=== PATIENT | female | born 1955 | race Two or more races ===

== ENCOUNTER 2016-11-16 08:11 | Day surgery (SDC) | payer MEDICAID ==
[~2016-11-16 08:11] MED LIST: KETOROLAC TROMETHAMINE 0.45% 4 DROP/0.4 ML DROPERETTE OD PRN
[2016-11-16] MEDS ORDERED: EPINEPHRINE INJ/PF 1 MG/1 ML AMPULE ONE (08:23)
[2016-11-16] MEDS ORDERED: LIDOCAINE 1% INJ-PF (10 MG/ML) 30 ML SDV ONE (08:24)
[2016-11-16] MEDS ORDERED: CHONDR SU A NA/HYALUR INTRAOC KIT (SURGICARE) ONE (08:24)
[2016-11-16] MEDS: CYCLOPENTOLATE 0.2%/PHENYLEPHRINE 1% OPH SOLN 2 ML OD PRN ×3 (08:42→09:18)
[2016-11-16] MEDS: TETRACAINE HCL 0.5% OPH SOLN 2 ML OD PRN ×3 (08:42→09:42)
[2016-11-16] MEDS: TROPICAMIDE 1% OPH SOLN 3 ML OD PRN ×3 (08:43→09:18)
[2016-11-16] MEDS: BESIFLOXACIN HCL 0.6% OPH SUSP 5 ML BOTTLE OD PRN ×4 (08:44→10:07)
[2016-11-16] MEDS ORDERED: MIDAZOLAM 2 MG/2 ML INJ ONE (09:17)
--- NOTE | 2016-11-16 13:33 | [facility] OPERATIVE REPORT E ---
[facility] Operative Report NAME: MORENO SMITH AGE: 60Y DATE OF SURGERY: 11/16/2016 ROOM: PREOPERATIVE DIAGNOSIS: CATARACT, RIGHT EYE. POSTOPERATIVE DIAGNOSIS: CATARACT, RIGHT EYE. OPERATION: Cataract extraction with intraocular lens implant of the right eye. SURGEON: MELANI ARNOLD M.D. ANESTHESIA: Topical. PROCEDURE: After obtaining appropriate consent, the patient's right eye was prepped and draped in sterile fashion as well as the surgeon in a sterile manner and cataract surgery was started. First a paracentesis blade was used to make a small side-port incision. Viscoelastic was used to inflate the anterior chamber. Next a 2.4-mm incision was made with the paracentesis blade. A continuous capsulorrhexis incision was made using a cystotome and Utrata forceps. Following this hydrodissection was carried out to make the lens fully loose and mobile and it was rotated 90 degrees. Following this, a fiqlgd-ybq-oxycmuj technique was used to phacoemulsify the lens with a CDE of 7.55. The remaining cortex was removed with irrigation/aspiration. Provisc was instilled into the capsular bag to inflate the bag. A SN60WF, 21.0 diopter lens was placed. The remaining viscoelastic material was removed with irrigation/aspiration. Following this, a 10-0 nylon suture was used to close the incision and it was found to be watertight. Vigamox was instilled in the eye and a protective shield was placed over the eye. The patient returned to the postoperative recovery in stable condition. DICTATING PHYSICIAN: MELANI ARNOLD M.D. [id number] PHY#: [id number] ID: [id number] JOB#: [id number] ACCT: [id number] cc:MELANI ARNOLD M.D. >
--- NOTE | 2016-11-16 13:34 | [facility] DISCHARGE SUMMARY E ---
[facility] Discharge Summary NAME: MORENO SMITH AGE: 60Y ADMITTED: 11/16/2016 DISCHARGED: 11/16/2016 DIAGNOSIS: Cataract, right eye. SUMMARY: This is a 60-year-old female who underwent cataract extraction of the right eye. She underwent surgery because she was having trouble seeing words on the TV. DISCHARGE INSTRUCTIONS: She should be on a regular diet. No bending at her waist or heavy lifting. She should use her Besivance, Ilevro and Durezol at 3 p.m. and 8 p.m. and sleep with a rigid shield. I will see for 1-day postoperative tomorrow. DICTATING PHYSICIAN: MELANI ARNOLD M.D. [id number] PHY#: [id number] ID: [id number] JOB#: [id number] ACCT: [id number] cc:MELANI ARNOLD M.D. >
== END 2016-11-16 10:52 | disposition home or self-care (01) ==
LOC: SC 08:11
PROVIDERS: ATTEND Internal Medicine
PROC: 08RJ3JZ Replacement of Right Lens with Synthetic Substitute, Percutaneous Approach (ICD-10-PCS; principal; 2016-11-16 09:30)
DX: H25.811 Combined forms of age-related cataract, right eye (principal); Z96.1 Presence of intraocular lens; J45.909 Unspecified asthma, uncomplicated; I10 Essential (primary) hypertension; E11.9 Type 2 diabetes mellitus without complications; Z79.1 Long term (current) use of non-steroidal anti-inflammatories (NSAID)
CPT/HCPCS: 66984; 82962; V2632; J2250; J3490 ×4; J0171; 142

== ENCOUNTER 2017-10-18 11:11 | Inpatient (IN) | payer MEDICAID ==
[2017-10-18] MEDS ORDERED: KETOROLAC TROMETHAMINE INJ/PF 30 MG/1 ML SDV IV ONE (11:32)
[2017-10-18] MEDS ORDERED: ONDANSETRON HCL INJ/PF 4 MG/2 ML SDV IV ONE (11:32)
[2017-10-18] MEDS ORDERED: MORPHINE SULFATE 10 MG/ML INJ IV ONE ×2 (11:32→17:05)
[2017-10-18] MEDS ORDERED: NORMAL SALINE 1000 ML 1,000 ML IV ONE (11:33)
--- NOTE | 2017-10-18 11:34 | ER Document Report ---
ED Medical Screen (RME) - General Chief Complaint: Abdominal Pain Stated Complaint: STOMACH PAIN Time Seen by Provider: 10/18/17 11:28 Notes: The patient is a 61-year-old female, past medical history 3 ventral hernia repairs (last one 12 months ago), bipolar, presents with 1 week of worsening right lower quadrant abdominal pain and nausea. She saw her primary care physician at [facility] this morning and was sent to the ER because of concern of appendicitis. PE: RLQ tenderness. Normal bowel sounds. I have greeted and performed a rapid initial assessment of this patient. A comprehensive ED assessment and evaluation of the patient, analysis of test results and completion of the medical decision making process will be conducted by additional ED providers. TRAVEL OUTSIDE OF THE [place] IN LAST 30 DAYS: No - Related Data Allergies/Adverse Reactions: codeine [Codeine] Allergy (Severe, Verified 11/09/16 13:08) Swelling of Throat Home Medications: Current Home Medications Albuterol Sulfate [Proair Respiclick] 2 puff IN Q4 PRN 10/18/17 [History] Beclomethasone Dipropionate [Qvar] 2 puff IN BID 10/18/17 [History] Cyclobenzaprine HCl 1 tab PO TID 10/18/17 [History] Gabapentin 400 mg PO TID 10/18/17 [History] Omeprazole 20 mg PO DAILY 10/18/17 [History] Zoster Vaccine Live/Pf [Zostavax Vial] 1 dose SUBCUT ASDIR PRN 10/18/17 [History ] Past Medical History - Past Medical History Cardiac Medical History: Reports: Hx Hypertension - meds x 20 years Denies: Hx Coronary Artery Disease, Hx Heart Attack Pulmonary Medical History: Reports: Hx Asthma - denies ED visits Denies: Hx Bronchitis, Hx COPD, Hx Pneumonia Neurological Medical History: Denies: Hx Cerebrovascular Accident, Hx Seizures GI Medical History: Denies: Hx Hepatitis, Hx Hiatal Hernia, Hx Ulcer Musculoskeltal Medical History: Reports Hx Arthritis - "all over" Infectious Medical History: Denies: Hx Hepatitis Past Surgical History: Denies: Hx Mastectomy, Hx Open Heart Surgery, Hx Pacemaker - Immunizations Hx Diphtheria, Pertussis, Tetanus Vaccination: No Physical Exam - Vital signs Vitals: Temp Pulse Resp BP Pulse Ox 98.6 F 75 14 161/81 H 98 10/18/17 11:17 10/18/17 11:17 10/18/17 11:17 10/18/17 11:17 10/18/17 11:17 Course - Vital Signs Vital signs: Temp Pulse Resp BP Pulse Ox 98.6 F 75 14 161/81 H 98 10/18/17 11:17 10/18/17 11:17 10/18/17 11:17 10/18/17 11:17 10/18/17 11:17
[2017-10-18 12:16] LABS: ABSOLUTE BASOPHILS # (AUTO) 0.1 10^3/uL (0.0-0.2); ABSOLUTE EOSINOPHILS # (AUTO) 0.1 10^3/uL (0.0-0.6); ABSOLUTE LYMPHOCYTES (AUTO) 3.1 10^3/uL (0.5-4.7); ABSOLUTE MONOCYTES (AUTO) 0.9 10^3/uL (0.1-1.4); ABSOLUTE NEUT (AUTO) 8.3 10^3/uL (1.7-8.2); BASOPHILS % (AUTO) 1.1 % (0-2); HEMATOCRIT 33.8 % (36.0-47.0); HEMOGLOBIN 11.4 g/dL (12.0-15.5); HGB HCT DIFFERENCE 0.4; LYMPHOCYTES % (AUTO) 24.4 % (13-45); MEAN CORPUSCULAR HEMOGLOBIN 26.4 pg (27.0-33.4); MEAN CORPUSCULAR HGB CONC 33.9 g/dL (32.0-36.0); MEAN CORPUSCULAR VOLUME 78 fl (80-97); RED BLOOD COUNT 4.33 10^6/uL (3.72-5.28); RED CELL DISTRIBUTION WIDTH 14.1 % (11.5-14.0); SEGMENTED NEUTROPHILS % (AUTO) 66.5 % (42-78); WHITE BLOOD COUNT 12.5 10^3/uL (4.0-10.5)
--- NOTE | 2017-10-18 12:18 | ER Document Report ---
ED GI/ - General Chief Complaint: Abdominal Pain Stated Complaint: STOMACH PAIN Time Seen by Provider: 10/18/17 11:28 TRAVEL OUTSIDE OF THE [place] IN LAST 30 DAYS: No - HPI Notes: 10/18/17 12:14 This 61 years old female with a history of chronic pain syndrome taking tramadol , possible gastroparesis, presents today with one-week history of brownie dark watery stool twice a day, and gradually increasing diffuse abdominal pain, today the pain was more increased on the right lower quadrant. Denies any fever chills denies any nausea or vomiting. Denies any dysuria frequency urgency. Intensity of pain today is moderate to severe. Exacerbated by change in position. Denies any dysuria frequency urgency. - Related Data Allergies/Adverse Reactions: codeine [Codeine] Allergy (Severe, Verified 11/09/16 13:08) Swelling of Throat Home Medications: Current Home Medications Albuterol Sulfate [Proair Respiclick] 2 puff IN Q4 PRN 10/18/17 [History] Beclomethasone Dipropionate [Qvar] 2 puff IN BID 10/18/17 [History] Cyclobenzaprine HCl 1 tab PO TID 10/18/17 [History] Gabapentin 400 mg PO TID 10/18/17 [History] Omeprazole 20 mg PO DAILY 10/18/17 [History] Zoster Vaccine Live/Pf [Zostavax Vial] 1 dose SUBCUT ASDIR PRN 10/18/17 [History ] Past Medical History - General Information source: Patient - Social History Smoking Status: Never Smoker Frequency of alcohol use: None Drug Abuse: None Family History: Arthritis, Hypertension Patient has suicidal ideation: No Patient has homicidal ideation: No - Past Medical History Cardiac Medical History: Reports: Hx Hypertension - meds x 20 years Denies: Hx Coronary Artery Disease, Hx Heart Attack Pulmonary Medical History: Reports: Hx Asthma - denies ED visits Denies: Hx Bronchitis, Hx COPD, Hx Pneumonia Neurological Medical History: Denies: Hx Cerebrovascular Accident, Hx Seizures Renal/ Medical History: Denies: Hx Peritoneal Dialysis GI Medical History: Denies: Hx Hepatitis, Hx Hiatal Hernia, Hx Ulcer Musculoskeltal Medical History: Reports Hx Arthritis - "all over" Infectious Medical History: Denies: Hx Hepatitis Past Surgical History: Denies: Hx Mastectomy, Hx Open Heart Surgery, Hx Pacemaker - Immunizations Hx Diphtheria, Pertussis, Tetanus Vaccination: No Review of Systems - Review of Systems Constitutional: No symptoms reported. denies: See HPI, Chills, Diaphoresis, Fever, Malaise, Weakness, Other, Weight gain, Weight loss, Recent illness EENT: No symptoms reported. denies: See HPI, Eye pain, Eye discharge, Blurred vision, Tearing, Double vision, Ear pain, Ear discharge, Nose pain, Nose congestion, Nose discharge, Sinus pressure, Sinus discharge, Throat pain, Difficulty swallowing, Throat swelling, Mouth pain, Mouth swelling, Dental problem, Vertigo, Other Cardiovascular: No symptoms reported. denies: See HPI, Chest pain, Palpitations , Heart racing, Orthopnea, Dyspnea, Syncope, Dizziness, Lightheaded, Edema, Other, Paroxysmal Nocturnal Dysp Respiratory: No symptoms reported. denies: See HPI, Cough, Hurts to breathe, Hemoptysis, Short of breath, Sputum, Stridor, Wheezing, Other Gastrointestinal: See HPI Genitourinary: See HPI Female Genitourinary: No symptoms reported. denies: See HPI, Last menstrual period, , Post menopausal, Heavy/abnormal periods, Irregular period, Vaginal bleeding, Vaginal discharge, Vaginal odor, Painful intercourse, Other Skin: No symptoms reported. denies: See HPI, Change in color, Change in hair/ nails, Dryness, Lesions, Lumps, Rash, Other Physical Exam - Vital signs Vitals: Temp Pulse Resp BP Pulse Ox 98.6 F 75 14 161/81 H 98 10/18/17 11:17 10/18/17 11:17 10/18/17 11:17 10/18/17 11:17 10/18/17 11:17 - Notes Notes: General exam: Alert oriented 3, appears well, not in any acute distress, body habitus----obese female seems to be in moderate discomfort diffuse abdominal tenderness more so on the right lower quadrant with guarding.--. HEENT: Normocephalic atraumatic pupils were equal reactive to light extraocular muscles were within normal range. Neck is supple no JVD no lymphadenopathy. Oral mucosa-not erythematous, no lesions noted no tonsillar enlargement. Chest no lesions, nontraumatic, nontender. No deformity Lungs: Bilaterally clear breath sounds no rales or wheezing, no adventitial sounds,no dullness on percussion. Cardiovascular system: Normal S1-S2 no murmurs, no gallop. Regular rhythm. No peripheral edema over the lower extremities. Gastrointestinal: Normal appearance, positive bowel sounds in all 4 quadrants, no Hepatosplenomegaly, no obvious masses, no obvious abdominal bruit. No horseshoe dullness. Inguinal region: No masses or obvious inguinal hernia noted Genitourinary: Rectal exam: Nervous system: Alert oriented 3, no cranial nerve weakness, no focal neurological deficit noted. Sensation is intact over the lower extremities for pain and touch. Reflexes are 2+ over both patella. Upper extremities: No trauma as noted, normal range of motion for both shoulders ,elbows and wrist. Lower extremity: No traumas or deformities noted, normal range of motion for flexion extension abduction abduction of both hip joints, Normal flexion and extension of knee joint. Normal range of motion for plantarflexion dorsiflexion and eversion inversion for both ankles. Skin: No erythema, no edema, no obvious lesions noted Course - Re-evaluation Re-evalutation: 10/18/17 17:17 Surgery was consulted regarding her right lower quadrant seroma versus hematoma. - Vital Signs Vital signs: Temp Pulse Resp BP Pulse Ox 98.6 F 75 14 161/81 H 98 10/18/17 11:17 10/18/17 11:17 10/18/17 11:17 10/18/17 11:17 10/18/17 11:17 - Laboratory Result Diagrams: 10/18/17 11:50 10/18/17 13:52 Laboratory results interpreted by me: 10/18/17 10/18/17 11:50 13:52 WBC 12.5 H Hgb 11.4 L Hct 33.8 L MCV 78 L MCH 26.4 L RDW 14.1 H Absolute Neutrophils 8.3 H Sodium 128.6 L Chloride 96 L Carbon Dioxide 21 L Creatinine 0.50 L Glucose 74 L - Diagnostic Test Radiology results interpreted by me: 10/18/17 16:10 Diagnostic report text EXAM DESCRIPTION: CT ABD/PELVIS WITH IV ONLY COMPLETED DATE/TIME: 10/18/2017 3:10 pm REASON FOR STUDY: RLQ pain COMPARISON: 10/24/2016. TECHNIQUE: CT scan of the abdomen and pelvis performed using helical scanning technique with dynamic intravenous contrast injection. No oral contrast. Images reviewed with lung, soft tissue, and bone windows. Reconstructed coronal and sagittal MPR images reviewed. Delayed images for evaluation of the urinary system also acquired. All images stored on PACS. All CT scanners at this facility use dose modulation, iterative reconstruction, and/or weight based dosing when appropriate to reduce radiation dose to as low as reasonably achievable (ALARA). [facility]: Dose Right [facility]: CareDose [facility]: Dose Right [facility]: Teradose 4D [facility]: TrepUp CONTRAST TYPE AND DOSE: contrast/concentration: Isovue 370.00 mg/ml; Total Contrast Delivered: 86.0 ml; Total Saline Delivered: 69.0 ml RENAL FUNCTION: BUN 9 creatinine 0.5. RADIATION DOSE: . LIMITATIONS: None. FINDINGS: LOWER CHEST: No significant findings. No nodules or infiltrates. LIVER: Normal size. No masses. No dilated ducts. SPLEEN: Normal size. No focal lesions. PANCREAS: No masses. No significant calcifications. No adjacent inflammation or peripancreatic fluid collections. Pancreatic duct not dilated. GALLBLADDER: No identified stones by CT criteria. No inflammatory changes to suggest cholecystitis. ADRENAL GLANDS: No significant masses or asymmetry. RIGHT KIDNEY AND URETER: No solid masses. No significant calcifications. No hydronephrosis or hydroureter. LEFT KIDNEY AND URETER: No solid masses. No significant calcifications. No hydronephrosis or hydroureter. AORTA AND VESSELS: No aneurysm. No dissection. Renal arteries, SMA, celiac without stenosis. RETROPERITONEUM: No retroperitoneal adenopathy, hemorrhage or masses. BOWEL AND PERITONEAL CAVITY: No masses or inflammatory changes. No free fluid or peritoneal masses. APPENDIX: Normal. PELVIS: No mass. No free fluid. Normal bladder. ABDOMINAL WALL: Interval abdominal wall hernia repair. Fluid collection along the anterior abdominal wall at the operative site measuring 2 cm in thickness, 6 cm and with , and 7.5 cm and length. BONES: No significant or acute findings. OTHER: No other significant finding. IMPRESSION: 1. INTERVAL SURGICAL REPAIR OF THE ABDOMINAL WALL HERNIA. THERE IS FLUID COLLECTION IN THE OPERATIVE SITE, PRESUMABLY RESIDUAL POSTOPERATIVE SEROMA OR RESOLVING HEMATOMA. 2. NO OTHER SIGNIFICANT OR ACUTE FINDING IN THE ABDOMEN OR PELVIS ON CT SCAN WITH IV CONTRAST. TECHNICAL DOCUMENTATION: JOB ID: [id number] Quality ID # [id number]: Final reports with documentation of one or more dose reduction techniques (e.g., Automated exposure control, adjustment of the mA and/or kV according to patient size, use of iterative reconstruction technique) 2010 [employer]- All Rights Reserved Dictated by: SURJIT NAVARRO MD [id number] Discharge - Discharge Clinical Impression: Colitis, Hyponatremia, Dehydration Abdominal pain Qualifiers: Abdominal location: generalized Qualified Code(s): R10.84 - Generalized abdominal pain Disposition: ADMITTED OBSERVATION Admitting Provider: Hospitalist Unit Admitted: Medical Floor Referrals: CHAPIS HSIEH MD [Primary Care Provider] - Follow up as needed
[2017-10-18 13:17] LABS: APPEARANCE,URINE CLEAR; BILIRUBIN,URINE NEGATIVE (NEGATIVE); GLUCOSE, URINE NEGATIVE (NEGATIVE); KETONES,URINE NEGATIVE (NEGATIVE); LEUKOCYTE ESTERASE,URINE NEGATIVE (NEGATIVE); NITRITE,URINE NEGATIVE (NEGATIVE); PROTEIN,URINE NEGATIVE (NEGATIVE); URINE SPECIFIC GRAVITY 1.008; UROBILINOGEN,URINE NEGATIVE mg/dL (<2.0)
[2017-10-18 14:38] LABS: ALANINE AMINOTRANSFERASE 25 U/L (9-52); ALBUMIN 3.9 g/dL (3.5-5.0); ALKALINE PHOSPHATASE 94 U/L (38-126); ANION GAP 12 (5-19); ASPARTATE AMINO TRANSFERASE 22 U/L (14-36); BILIRUBIN,DIRECT 0.3 mg/dL (0.0-0.4); BILIRUBIN,TOTAL 0.3 mg/dL (0.2-1.3); BLOOD UREA NITROGEN 9 mg/dL (7-20); CALCIUM 8.5 mg/dL (8.4-10.2); CARBON DIOXIDE 21 mmol/L (22-30); CHLORIDE 96 mmol/L (98-107); GLUCOSE 74 mg/dL (75-110); LIPASE 240.7 U/L (23-300); POTASSIUM 4.8 mmol/L (3.6-5.0); SODIUM 128.6 mmol/L (137-145); TOTAL PROTEIN 6.3 g/dL (6.3-8.2)
--- NOTE | 2017-10-18 15:25 | RADIOLOGY REPORT (SQ) ---
EXAM DESCRIPTION: CT ABD/PELVIS WITH IV ONLY COMPLETED DATE/TIME: 10/18/2017 3:10 pm REASON FOR STUDY: RLQ pain COMPARISON: 10/24/2016. TECHNIQUE: CT scan of the abdomen and pelvis performed using helical scanning technique with dynamic intravenous contrast injection. No oral contrast. Images reviewed with lung, soft tissue, and bone windows. Reconstructed coronal and sagittal MPR images reviewed. Delayed images for evaluation of the urinary system also acquired. All images stored on PACS. All CT scanners at this facility use dose modulation, iterative reconstruction, and/or weight based d osing when appropriate to reduce radiation dose to as low as reasonably achievable (ALARA). [facility]: Dose Right [facility]: CareDose [facility]: Dose Right [facility]: Teradose 4D [facility]: [employer] CONTRAST TYPE AND DOSE: contrast/concentration: Isovue 370.00 mg/ml; Total Contrast Delivered: 86.0 ml; Total Saline Delivered: 69.0 ml RENAL FUNCTION: BUN 9 creatinine 0.5. RADIATION DOSE: . LIMITATIONS: None. FINDINGS: LOWER CHEST: No significant findings. No nodules or infiltrates. LIVER: Normal size. No masses. No dilated ducts. SPLEEN: Normal size. No focal lesions. PANCREAS: No masses. No significant calcifications. No adjacent inflammation or peripancreatic fluid collections. Pancreatic duct not dilated. GALLBLADDER: No identified stones by CT criteria. No inflammatory changes to suggest cholecystitis. ADRENAL GLANDS: No significant masses or asymmetry. RIGHT KIDNEY AND URETER: No solid masses. No significant calcifications. No hydronephrosis or hyd roureter. LEFT KIDNEY AND URETER: No solid masses. No significant calcifications. No hydronephrosis or hydr oureter. AORTA AND VESSELS: No aneurysm. No dissection. Renal arteries, SMA, celiac without stenosis. RETROPERITONEUM: No retroperitoneal adenopathy, hemorrhage or masses. BOWEL AND PERITONEAL CAVITY: No masses or inflammatory changes. No free fluid or peritoneal masses. APPENDIX: Normal. PELVIS: No mass. No free fluid. Normal bladder. ABDOMINAL WALL: Interval abdominal wall hernia repair. Fluid collection along the anterior abdominal wall at the operative site measuring 2 cm in thickness, 6 cm and with, and 7.5 cm and length. BONES: No significant or acute findings. OTHER: No other significant finding. IMPRESSION: 1. INTERVAL SURGICAL REPAIR OF THE ABDOMINAL WALL HERNIA. THERE IS FLUID COLLECTION IN THE OPERATIVE SITE, PRESUMABLY RESIDUAL POSTOPERATIVE SEROMA OR RESOLVING HEMATOMA. 2. NO OTHER SIGNIFICANT OR ACUTE FINDING IN THE ABDOMEN OR PELVIS ON CT SCAN WITH IV CONTRAST. TECHNICAL DOCUMENTATION: JOB ID: [id number] Quality ID # [id number]: Final reports with documentation of one or more dose reduction techniques (e.g., Au tomated exposure control, adjustment of the mA and/or kV according to patient size, use of iterative reconstruction technique) 2010 [employer]- All Rights Reserved
--- NOTE | 2017-10-18 17:47 | PDOC CONSULTATION ---
Consultation Consult Date: 10/18/17 Consult reason:: Abdominal pain History of Present Illness Admission Date/PCP: CHAPIS HSIEH MD Patient complains of: Abdominal pain History of Present Illness: MORENO SMITH is a 61 year old female presenting with one-week history of diffuse lower abdominal pain along with diarrhea. She has had intermittent episodes of nausea and vomiting as well. She denies any fever. She denies any prior history of this abdominal pain. This problem has been present for about a week and with this persistence patient came into the emergency department. She has had a ventral hernia repair with mesh for recurrent ventral hernia at the beginning of this year. Apparently she recovered well from this surgery without problems. Past Medical History Cardiac Medical History: Reports: Hypertension - meds x 20 years Denies: Coronary Artery Disease, Myocardial Infarction Pulmonary Medical History: Reports: Asthma - denies ED visits Denies: Bronchitis, Chronic Obstructive Pulmonary Disease (COPD), Pneumonia Neurological Medical History: Denies: Seizures GI Medical History: Denies: Hepatitis, Hiatal Hernia Musculoskeltal Medical History: Reports: Arthritis - "all over" Hematology: Reports: Anemia - Hx of, treated with PO iron Denies: Sickle Cell Disease Past Surgical History Past Surgical History: Denies: Amputation, Mastectomy, Pacemaker Social History Smoking Status: Never Smoker Family History Family History: Arthritis, Hypertension Parental Family History Reviewed: Yes Children Family History Reviewed: Yes Sibling(s) Family History Reviewed.: Yes Medication/Allergy Home Medications: Meloxicam [Mobic] 7.5 mg PO DAILY 03/06/12 Metformin HCl [Glucophage XR 500 mg Tablet] 500 mg PO BID 10/23/16 Lisinopril 20 mg PO DAILY 10/26/16 Albuterol Sulfate [Proair Respiclick] 2 puff IN Q4 PRN 10/18/17 Beclomethasone Dipropionate [Qvar] 2 puff IN BID 10/18/17 Cyclobenzaprine HCl 1 tab PO TID 10/18/17 Gabapentin 400 mg PO TID 10/18/17 Omeprazole 20 mg PO DAILY 10/18/17 Zoster Vaccine Live/Pf [Zostavax Vial] 1 dose SUBCUT ASDIR PRN 10/18/17 Allergies/Adverse Reactions: codeine [Codeine] Allergy (Severe, Verified 11/09/16 13:08) Swelling of Throat Physical Exam Vital Signs: Temp Pulse Resp BP Pulse Ox 98.6 F 75 14 161/81 H 98 10/18/17 11:17 10/18/17 11:17 10/18/17 11:17 10/18/17 11:17 10/18/17 11:17 Intake & Output 10/17/17 10/18/17 10/19/17 06:59 06:59 06:59 Weight 80.3 kg General appearance: PRESENT: no acute distress, cooperative Eye exam: PRESENT: conjunctiva pink Neck exam: PRESENT: other - Supple with no masses Respiratory exam: PRESENT: clear to auscultation carly Cardiovascular exam: PRESENT: RRR GI/Abdominal exam: PRESENT: other - Soft, patient is obese and difficult to tell whether she is distended. There is no erythema and there is no induration she has a well-healed abdominal scar. I do not feel any hernia defects. Patient has diffuse lower abdominal tenderness without peritoneal signs. Extremities exam: PRESENT: other - No swelling Skin exam: PRESENT: warm Results Laboratory Results: 10/18/17 11:50 10/18/17 13:52 10/18/17 10/18/17 10/18/17 11:50 11:50 12:48 WBC 12.5 H RBC 4.33 Hgb 11.4 L Hct 33.8 L MCV 78 L MCH 26.4 L MCHC 33.9 RDW 14.1 H Plt Count 425 Seg Neutrophils % 66.5 Lymphocytes % 24.4 Monocytes % 7.0 Eosinophils % 1.0 Basophils % 1.1 Absolute Neutrophils 8.3 H Absolute Lymphocytes 3.1 Absolute Monocytes 0.9 Absolute Eosinophils 0.1 Absolute Basophils 0.1 Sodium Cancelled Potassium Cancelled Chloride Cancelled Carbon Dioxide Cancelled Anion Gap Cancelled BUN Cancelled Creatinine Cancelled Est GFR ( Amer) Cancelled Est GFR (Non-Af Amer) Cancelled Glucose Cancelled Calcium Cancelled Total Bilirubin Cancelled AST Cancelled ALT Cancelled Alkaline Phosphatase Cancelled Total Protein Cancelled Albumin Cancelled Lipase Cancelled Urine Color STRAW Urine Appearance CLEAR Urine pH 7.0 Ur Specific Tracy 1.008 Urine Protein NEGATIVE Urine Glucose (UA) NEGATIVE Urine Ketones NEGATIVE Urine Blood NEGATIVE Urine Nitrite NEGATIVE Ur Leukocyte Esterase NEGATIVE Urine WBC (Auto) 1 Urine RBC (Auto) 1 10/18/17 13:52 WBC RBC Hgb Hct MCV MCH MCHC RDW Plt Count Seg Neutrophils % Lymphocytes % Monocytes % Eosinophils % Basophils % Absolute Neutrophils Absolute Lymphocytes Absolute Monocytes Absolute Eosinophils Absolute Basophils Sodium 128.6 L Potassium 4.8 Chloride 96 L Carbon Dioxide 21 L Anion Gap 12 BUN 9 Creatinine 0.50 L Est GFR ( Amer) > 60 Est GFR (Non-Af Amer) > 60 Glucose 74 L Calcium 8.5 Total Bilirubin 0.3 AST 22 ALT 25 Alkaline Phosphatase 94 Total Protein 6.3 Albumin 3.9 Lipase 240.7 Urine Color Urine Appearance Urine pH Ur Specific Tracy Urine Protein Urine Glucose (UA) Urine Ketones Urine Blood Urine Nitrite Ur Leukocyte Esterase Urine WBC (Auto) Urine RBC (Auto) Impressions: Abdomen/Pelvis CT 10/18/17 11:32 IMPRESSION: 1. INTERVAL SURGICAL REPAIR OF THE ABDOMINAL WALL HERNIA. THERE IS FLUID COLLECTION IN THE OPERATIVE SITE, PRESUMABLY RESIDUAL POSTOPERATIVE SEROMA OR RESOLVING HEMATOMA. 2. NO OTHER SIGNIFICANT OR ACUTE FINDING IN THE ABDOMEN OR PELVIS ON CT SCAN WITH IV CONTRAST. Assessment & Plan - Diagnosis (1) Colitis Is this a current diagnosis for this admission?: Yes Plan: Patient with diarrhea and lower abdominal pain for a week all consistent with colitis. CT scan demonstrates a seroma versus hematoma anterior to the mesh repair. I do not see inflammatory changes in this region. She demonstrates no erythema no induration over this area therefore I do not think this finding is clinically significant. The appendix appeared normal on CT. There is no free air. There is no free fluid. There is no inflammatory changes seen on CT. Recommend admission to medical service for treatment of her colitis with IV fluids, antibiotics, and stool studies.
[2017-10-18] MEDS ORDERED: ZOLPIDEM TARTRATE 5 MG TABLET PO PRN (18:09)
[2017-10-18] MEDS ORDERED: ACETAMINOPHEN 325 MG TABLET PO PRN (18:09)
[2017-10-18] MEDS ORDERED: ONDANSETRON HCL INJ/PF 4 MG/2 ML SDV IV PRN (18:09)
[2017-10-18] MEDS ORDERED: INSULIN LISPRO 100 UNIT/ML 3 ML VIAL SUBCUT PRN (18:17)
[2017-10-18] MEDS ORDERED: GLUCAGON,HUMAN RECOMB 1 MG INJ IM PRN (18:17)
[2017-10-18] MEDS ORDERED: DEXTROSE 50%-WATER 25 GM/50 ML DISP.SYRIN IV PRN ×2 (18:17)
[2017-10-18] MEDS ORDERED: DEXTROSE 40% GEL 15 GM TUBE PO PRN ×2 (18:17)
--- NOTE | 2017-10-18 18:35 | PDOC H&P ---
History of Present Illness Admission Date/PCP: CHAPIS HSIEH MD 10/18/2017 Patient complains of: Stomach pain for 1 week History of Present Illness: Mariely Fair is a 61 years old female who presented to emergency room accompanied by her daughter and complains of stomach pain mostly localized to the right lower quadrant. Patient refers that the pain is constant. Pain is accompanied by nausea and poor appetite. Patient admits that she had not been eating that much out of fear of getting diarrhea. Pain has been accompanied by watery diarrhea. Patient denies fever chills, back pain or chest pain. She denies being on any antibiotic recently. She had a hernia repair back of November of this year. She had been doing well otherwise. During the course of evaluation in emergency room patient was evaluated through CT of abdomen and pelvis. Posteriorly was seen by Dr. Palmer who thought that probably related to colitis and did not have to do with her previous hernia repair. Since sodium was low and white blood cell count was elevated our service was contacted for further evaluation. We opted then to admit patient for further management Past Medical History Cardiac Medical History: Reports: Hypertension - meds x 20 years Denies: Coronary Artery Disease, Myocardial Infarction Pulmonary Medical History: Reports: Asthma - denies ED visits Denies: Bronchitis, Chronic Obstructive Pulmonary Disease (COPD), Pneumonia EENT Medical History: Reports: None Neurological Medical History: Reports: None Denies: Seizures Endocrine Medical History: Reports: None, Diabetes Mellitus Type 2 Malignancy Medical History: Reports: None GI Medical History: Reports: None Denies: Hepatitis, Hiatal Hernia Musculoskeltal Medical History: Reports: Arthritis - "all over" Skin Medical History: Reports: None Psychiatric Medical History: Reports: None Traumatic Medical History: Reports: None Hematology: Reports: None, Anemia - Hx of, treated with PO iron Denies: Sickle Cell Disease Infectious Medical History: Reports: None Past Surgical History Past Surgical History: Denies: Amputation, Mastectomy, Pacemaker Social History Information Source: Patient Smoking Status: Never Smoker Frequency of Alcohol Use: None Hx Recreational Drug Use: No Drugs: None Hx Prescription Drug Abuse: No - Advance Directive Resuscitation Status: Full Code Family History Family History: Arthritis, Hypertension, Other - cancer Parental Family History Reviewed: Yes Children Family History Reviewed: Yes Sibling(s) Family History Reviewed.: Yes Medication/Allergy Home Medications: Meloxicam [Mobic] 7.5 mg PO DAILY 03/06/12 Metformin HCl [Glucophage XR 500 mg Tablet] 500 mg PO BID 10/23/16 Lisinopril 20 mg PO DAILY 10/26/16 Albuterol Sulfate [Proair Respiclick] 2 puff IN Q4 PRN 10/18/17 Beclomethasone Dipropionate [Qvar] 2 puff IN BID 10/18/17 Cyclobenzaprine HCl 1 tab PO TID 10/18/17 Gabapentin 400 mg PO TID 10/18/17 Omeprazole 20 mg PO DAILY 10/18/17 Zoster Vaccine Live/Pf [Zostavax Vial] 1 dose SUBCUT ASDIR PRN 10/18/17 Allergies/Adverse Reactions: codeine [Codeine] Allergy (Severe, Verified 11/09/16 13:08) Swelling of Throat Physical Exam Vital Signs: Temp Pulse Resp BP Pulse Ox 98.6 F 75 14 161/81 H 98 10/18/17 11:17 10/18/17 11:17 10/18/17 11:17 10/18/17 11:17 10/18/17 11:17 Intake & Output 10/17/17 10/18/17 10/19/17 06:59 06:59 06:59 Weight 80.3 kg General appearance: PRESENT: no acute distress, cooperative, obese Head exam: PRESENT: atraumatic, normocephalic Eye exam: PRESENT: conjunctiva pink, EOMI, PERRLA Ear exam: PRESENT: normal external ear exam, TM's normal bilaterally Mouth exam: PRESENT: moist, neck supple Neck exam: ABSENT: full ROM, JVD, tenderness, thyromegaly Respiratory exam: PRESENT: clear to auscultation carly Cardiovascular exam: PRESENT: RRR. ABSENT: diastolic murmur, systolic murmur Vascular exam: PRESENT: normal capillary refill GI/Abdominal exam: PRESENT: distended, normal bowel sounds, tenderness - Lower abdominal. ABSENT: ascites Extremities exam: PRESENT: tenderness - Right lower extremity. ABSENT: joint swelling Musculoskeletal exam: PRESENT: ambulatory Neurological exam: PRESENT: alert, oriented to person, oriented to place, oriented to time, CN II-XII grossly intact Psychiatric exam: PRESENT: appropriate affect, normal mood Skin exam: PRESENT: normal color Results Laboratory Results: 10/18/17 11:50 10/18/17 13:52 10/18/17 10/18/17 10/18/17 11:50 11:50 12:48 WBC 12.5 H RBC 4.33 Hgb 11.4 L Hct 33.8 L MCV 78 L MCH 26.4 L MCHC 33.9 RDW 14.1 H Plt Count 425 Seg Neutrophils % 66.5 Lymphocytes % 24.4 Monocytes % 7.0 Eosinophils % 1.0 Basophils % 1.1 Absolute Neutrophils 8.3 H Absolute Lymphocytes 3.1 Absolute Monocytes 0.9 Absolute Eosinophils 0.1 Absolute Basophils 0.1 Sodium Cancelled Potassium Cancelled Chloride Cancelled Carbon Dioxide Cancelled Anion Gap Cancelled BUN Cancelled Creatinine Cancelled Est GFR ( Amer) Cancelled Est GFR (Non-Af Amer) Cancelled Glucose Cancelled Calcium Cancelled Total Bilirubin Cancelled AST Cancelled ALT Cancelled Alkaline Phosphatase Cancelled Total Protein Cancelled Albumin Cancelled Lipase Cancelled Urine Color STRAW Urine Appearance CLEAR Urine pH 7.0 Ur Specific [place] 1.008 Urine Protein NEGATIVE Urine Glucose (UA) NEGATIVE Urine Ketones NEGATIVE Urine Blood NEGATIVE Urine Nitrite NEGATIVE Ur Leukocyte Esterase NEGATIVE Urine WBC (Auto) 1 Urine RBC (Auto) 1 10/18/17 13:52 WBC RBC Hgb Hct MCV MCH MCHC RDW Plt Count Seg Neutrophils % Lymphocytes % Monocytes % Eosinophils % Basophils % Absolute Neutrophils Absolute Lymphocytes Absolute Monocytes Absolute Eosinophils Absolute Basophils Sodium 128.6 L Potassium 4.8 Chloride 96 L Carbon Dioxide 21 L Anion Gap 12 BUN 9 Creatinine 0.50 L Est GFR ( Amer) > 60 Est GFR (Non-Af Amer) > 60 Glucose 74 L Calcium 8.5 Total Bilirubin 0.3 AST 22 ALT 25 Alkaline Phosphatase 94 Total Protein 6.3 Albumin 3.9 Lipase 240.7 Urine Color Urine Appearance Urine pH Ur Specific [place] Urine Protein Urine Glucose (UA) Urine Ketones Urine Blood Urine Nitrite Ur Leukocyte Esterase Urine WBC (Auto) Urine RBC (Auto) Impressions: Abdomen/Pelvis CT 10/18/17 11:32 IMPRESSION: 1. INTERVAL SURGICAL REPAIR OF THE ABDOMINAL WALL HERNIA. THERE IS FLUID COLLECTION IN THE OPERATIVE SITE, PRESUMABLY RESIDUAL POSTOPERATIVE SEROMA OR RESOLVING HEMATOMA. 2. NO OTHER SIGNIFICANT OR ACUTE FINDING IN THE ABDOMEN OR PELVIS ON CT SCAN WITH IV CONTRAST. Assessment & Plan - Diagnosis (1) Diabetes mellitus type 2 in obese Is this a current diagnosis for this admission?: Yes Plan: Patient will be placed on bedside glucose before meals and at bedtime and lispro sliding scale. (2) Colitis Is this a current diagnosis for this admission?: Yes Plan: Will request C. difficile and stool culture. Will place patient empirically on Flagyl IV (3) Hyponatremia Is this a current diagnosis for this admission?: Yes Plan: Patient has been experiencing poor oral intake and diarrhea making her volume contracted. Patient had received 1 L of normal saline IV bolus. Will place her on maintenance normal saline at 100 mL's per hour. We will trend (4) HTN (hypertension) Qualifiers: Hypertension type: essential hypertension Qualified Code(s): I10 - Essential (primary) hypertension Plan: Patient will be placed on Norvasc and will hold off lisinopril as there had been implicated in hyponatremia (5) Anemia Qualifiers: Anemia type: unspecified type Qualified Code(s): D64.9 - Anemia, unspecified Is this a current diagnosis for this admission?: Yes Plan: We will trend (6) Diabetic neuropathy Qualifiers: Diabetes mellitus type: type 2 Diabetes mellitus complication detail: diabetic autonomic neuropathy Qualified Code(s): E11.43 - Type 2 diabetes mellitus with diabetic autonomic (poly)neuropathy Is this a current diagnosis for this admission?: Yes Plan: Pain management (7) Lower abdominal pain Is this a current diagnosis for this admission?: Yes Plan: Appears to be related to inflammatory process due to colitis - Time Time Spent: 30 to 50 Minutes Medications reviewed and adjusted accordingly: Yes Anticipated discharge: Home - Inpatient Certification Based on my medical assessment, after consideration of the patient's comorbidities, presenting symptoms, or acuity I expect that the services needed warrant INPATIENT care.: Yes I certify that my determination is in accordance with my understanding of Medicare's requirements for reasonable and necessary INPATIENT services [42 CFR 412.3e].: Yes Medical Necessity: Need For IV Fluids, Need for Pain Control, Need for IV Antibiotics
[2017-10-18] MEDS ORDERED: AMLODIPINE BESYLATE 5 MG TABLET PO ONE (19:00)
[2017-10-18] MEDS ORDERED: METRONIDAZOLE 500 MG/NS RTU 100 ML IV ONE (19:00)
[2017-10-18] MEDS: POTASSI CL 20 MEQ/NS 1L 1,000 ML IV PRN (20:47)
[2017-10-19] MEDS: METRONIDAZOLE 500 MG/NS RTU 100 ML IV SCH ×3 (01:14→12:55)
[2017-10-19] MEDS: MORPHINE SULFATE 10 MG/ML INJ IV PRN ×3 (01:14→19:50)
[2017-10-19] MEDS: HEPARIN SOD (PORCINE) 5,000 UNIT/ML 1 ML SYRINGE SUBCUT SCH ×4 (01:15→21:49)
[2017-10-19 06:09] LABS: ABSOLUTE BASOPHILS # (AUTO) 0.1 10^3/uL (0.0-0.2); ABSOLUTE EOSINOPHILS # (AUTO) 0.2 10^3/uL (0.0-0.6); ABSOLUTE LYMPHOCYTES (AUTO) 2.4 10^3/uL (0.5-4.7); ABSOLUTE MONOCYTES (AUTO) 0.9 10^3/uL (0.1-1.4); ABSOLUTE NEUT (AUTO) 6.1 10^3/uL (1.7-8.2); BASOPHILS % (AUTO) 0.9 % (0-2); EOSINOPHILS % (AUTO) 1.7 % (0-6); HEMATOCRIT 32.1 % (36.0-47.0); HEMOGLOBIN 10.8 g/dL (12.0-15.5); HGB HCT DIFFERENCE 0.3; LYMPHOCYTES % (AUTO) 24.8 % (13-45); MEAN CORPUSCULAR HEMOGLOBIN 26.5 pg (27.0-33.4); MEAN CORPUSCULAR HGB CONC 33.5 g/dL (32.0-36.0); MEAN CORPUSCULAR VOLUME 79 fl (80-97); MONOCYTES % (AUTO) 9.3 % (3-13); RED BLOOD COUNT 4.07 10^6/uL (3.72-5.28); RED CELL DISTRIBUTION WIDTH 14.6 % (11.5-14.0); SEGMENTED NEUTROPHILS % (AUTO) 63.3 % (42-78); WHITE BLOOD COUNT 9.6 10^3/uL (4.0-10.5)
[2017-10-19] MEDS ORDERED: INFLUENZA ADLT QUAD (36MOS+) 2017-18 VAC 0.5 ML SYR IM PRN (06:11)
[2017-10-19 06:25] LABS: ANION GAP 7 (5-19); BLOOD UREA NITROGEN 8 mg/dL (7-20); CALCIUM 8.6 mg/dL (8.4-10.2); CARBON DIOXIDE 28 mmol/L (22-30); CHLORIDE 99 mmol/L (98-107); CREATININE RESULT 0.58 mg/dL (0.52-1.25); GLUCOSE 87 mg/dL (75-110); MAGNESIUM 1.9 mg/dL (1.6-2.3); POTASSIUM 4.8 mmol/L (3.6-5.0); SODIUM 133.8 mmol/L (137-145)
[2017-10-19] MEDS: POTASSI CL 20 MEQ/NS 1L 1,000 ML IV PRN ×2 (09:25→21:49)
[2017-10-19] MEDS: AMLODIPINE BESYLATE 5 MG TABLET PO SCH (09:41)
--- NOTE | 2017-10-19 15:23 | PDOC PROGRESS REPORT ---
Subjective Progress Note for:: 10/19/17 Subjective:: Patient refers that she feels better but still having pain in her lower abdomen off and on. Diarrhea had stopped since she came in Reason For Visit: LOWER ABDOMINAL PAIN, COLITIS, HYPONATREMIA Physical Exam Vital Signs: Temp Pulse Resp BP Pulse Ox 98.1 F 78 15 142/57 H 93 10/19/17 00:51 10/19/17 00:51 10/19/17 00:51 10/19/17 00:51 10/19/17 00:51 Intake & Output 10/17/17 10/18/17 10/19/17 06:59 06:59 06:59 Intake Total 200 Output Total 100 Balance 100 Weight 74.5 kg General appearance: PRESENT: no acute distress, cooperative, obese Head exam: PRESENT: atraumatic, normocephalic Eye exam: PRESENT: EOMI, PERRLA Ear exam: PRESENT: normal external ear exam Mouth exam: PRESENT: moist, neck supple Neck exam: PRESENT: full ROM. ABSENT: JVD, meningismus, tenderness Respiratory exam: PRESENT: clear to auscultation carly Cardiovascular exam: PRESENT: RRR. ABSENT: diastolic murmur, systolic murmur Vascular exam: PRESENT: normal capillary refill GI/Abdominal exam: PRESENT: normal bowel sounds, soft. ABSENT: ascites, tenderness Extremities exam: ABSENT: joint swelling, pedal edema, tenderness Musculoskeletal exam: PRESENT: full ROM Neurological exam: PRESENT: alert, oriented to person, oriented to place, oriented to time Psychiatric exam: PRESENT: appropriate affect, normal mood Skin exam: PRESENT: normal color Results Laboratory Results: 10/19/17 05:49 10/19/17 05:49 10/19/17 10/19/17 05:49 05:49 WBC 9.6 RBC 4.07 Hgb 10.8 L Hct 32.1 L MCV 79 L MCH 26.5 L MCHC 33.5 RDW 14.6 H Plt Count 357 Seg Neutrophils % 63.3 Lymphocytes % 24.8 Monocytes % 9.3 Eosinophils % 1.7 Basophils % 0.9 Absolute Neutrophils 6.1 Absolute Lymphocytes 2.4 Absolute Monocytes 0.9 Absolute Eosinophils 0.2 Absolute Basophils 0.1 Sodium 133.8 L Potassium 4.8 Chloride 99 Carbon Dioxide 28 Anion Gap 7 BUN 8 Creatinine 0.58 Est GFR ( Amer) > 60 Est GFR (Non-Af Amer) > 60 Glucose 87 Calcium 8.6 Magnesium 1.9 Impressions: Abdomen/Pelvis CT 10/18/17 11:32 IMPRESSION: 1. INTERVAL SURGICAL REPAIR OF THE ABDOMINAL WALL HERNIA. THERE IS FLUID COLLECTION IN THE OPERATIVE SITE, PRESUMABLY RESIDUAL POSTOPERATIVE SEROMA OR RESOLVING HEMATOMA. 2. NO OTHER SIGNIFICANT OR ACUTE FINDING IN THE ABDOMEN OR PELVIS ON CT SCAN WITH IV CONTRAST. Assessment & Plan - Diagnosis (1) Diabetes mellitus type 2 in obese Is this a current diagnosis for this admission?: Yes Plan: Continue present management (2) Colitis Is this a current diagnosis for this admission?: Yes Plan: To advance diet and transitioned to Flagyl oral (3) Hyponatremia Is this a current diagnosis for this admission?: Yes Plan: Will continue with normal saline and trend. Improved (4) HTN (hypertension) Qualifiers: Hypertension type: essential hypertension Qualified Code(s): I10 - Essential (primary) hypertension Plan: Continue present management. (5) Anemia Qualifiers: Anemia type: unspecified type Qualified Code(s): D64.9 - Anemia, unspecified Is this a current diagnosis for this admission?: Yes Plan: We will trend (6) Diabetic neuropathy Qualifiers: Diabetes mellitus type: type 2 Diabetes mellitus complication detail: diabetic autonomic neuropathy Qualified Code(s): E11.43 - Type 2 diabetes mellitus with diabetic autonomic (poly)neuropathy Is this a current diagnosis for this admission?: Yes Plan: Pain management (7) Lower abdominal pain Is this a current diagnosis for this admission?: Yes Plan: Appears to be related to inflammatory process due to colitis.Clinically improving on exam - Time Time Spent with patient: 15-24 minutes Medications reviewed and adjusted accordingly: Yes Anticipated discharge: Home Within: within 24 hours - Inpatient Certification Based on my medical assessment, after consideration of the patient's comorbidities, presenting symptoms, or acuity I expect that the services needed warrant INPATIENT care.: Yes I certify that my determination is in accordance with my understanding of Medicare's requirements for reasonable and necessary INPATIENT services [42 CFR 412.3e].: Yes Medical Necessity: Need For IV Fluids, Need for Pain Control
--- NOTE | 2017-10-19 17:22 | PDOC PROGRESS REPORT ---
Subjective Progress Note for:: 10/19/17 Subjective:: abdominal pains Reason For Visit: COLITIS,ABD PAIN,HYPONATREMIA Physical Exam Vital Signs: Temp Pulse Resp BP Pulse Ox 98.0 F 67 12 129/69 H 96 10/19/17 07:34 10/19/17 07:34 10/19/17 07:34 10/19/17 07:34 10/19/17 07:34 Intake & Output 10/18/17 10/19/17 10/20/17 06:59 06:59 06:59 Intake Total 200 Output Total 100 Balance 100 Weight 74.5 kg Exam: abdomen is soft with mild tenderness towards pubic area. No tenderness at the hernia repair site. Results Laboratory Results: 10/19/17 05:49 10/19/17 05:49 10/19/17 10/19/17 05:49 05:49 WBC 9.6 RBC 4.07 Hgb 10.8 L Hct 32.1 L MCV 79 L MCH 26.5 L MCHC 33.5 RDW 14.6 H Plt Count 357 Seg Neutrophils % 63.3 Lymphocytes % 24.8 Monocytes % 9.3 Eosinophils % 1.7 Basophils % 0.9 Absolute Neutrophils 6.1 Absolute Lymphocytes 2.4 Absolute Monocytes 0.9 Absolute Eosinophils 0.2 Absolute Basophils 0.1 Sodium 133.8 L Potassium 4.8 Chloride 99 Carbon Dioxide 28 Anion Gap 7 BUN 8 Creatinine 0.58 Est GFR ( Amer) > 60 Est GFR (Non-Af Amer) > 60 Glucose 87 Calcium 8.6 Magnesium 1.9 Impressions: Abdomen/Pelvis CT 10/18/17 11:32 IMPRESSION: 1. INTERVAL SURGICAL REPAIR OF THE ABDOMINAL WALL HERNIA. THERE IS FLUID COLLECTION IN THE OPERATIVE SITE, PRESUMABLY RESIDUAL POSTOPERATIVE SEROMA OR RESOLVING HEMATOMA. 2. NO OTHER SIGNIFICANT OR ACUTE FINDING IN THE ABDOMEN OR PELVIS ON CT SCAN WITH IV CONTRAST. Assessment & Plan - Time Time Spent with patient: 15-24 minutes - Plan Summary Plan Summary: Continue medical treatment for colitis
[2017-10-19] MEDS: METRONIDAZOLE 500 MG TABLET PO SCH (21:49)
[2017-10-20] MEDS: MORPHINE SULFATE 10 MG/ML INJ IV PRN (01:04)
[2017-10-20] MEDS: HEPARIN SOD (PORCINE) 5,000 UNIT/ML 1 ML SYRINGE SUBCUT SCH (05:08)
[2017-10-20] MEDS: METRONIDAZOLE 500 MG TABLET PO SCH (05:08)
[2017-10-20 07:47] LABS: ABSOLUTE BASOPHILS # (AUTO) 0.1 10^3/uL (0.0-0.2); ABSOLUTE EOSINOPHILS # (AUTO) 0.1 10^3/uL (0.0-0.6); ABSOLUTE LYMPHOCYTES (AUTO) 2.3 10^3/uL (0.5-4.7); ABSOLUTE MONOCYTES (AUTO) 0.7 10^3/uL (0.1-1.4); ABSOLUTE NEUT (AUTO) 6.1 10^3/uL (1.7-8.2); BASOPHILS % (AUTO) 0.5 % (0-2); EOSINOPHILS % (AUTO) 1.5 % (0-6); HEMATOCRIT 32.8 % (36.0-47.0); HEMOGLOBIN 10.9 g/dL (12.0-15.5); HGB HCT DIFFERENCE -0.1; LYMPHOCYTES % (AUTO) 24.8 % (13-45); MEAN CORPUSCULAR HEMOGLOBIN 26.2 pg (27.0-33.4); MEAN CORPUSCULAR HGB CONC 33.3 g/dL (32.0-36.0); MEAN CORPUSCULAR VOLUME 79 fl (80-97); MONOCYTES % (AUTO) 7.4 % (3-13); RED BLOOD COUNT 4.18 10^6/uL (3.72-5.28); RED CELL DISTRIBUTION WIDTH 14.5 % (11.5-14.0); SEGMENTED NEUTROPHILS % (AUTO) 65.8 % (42-78); WHITE BLOOD COUNT 9.3 10^3/uL (4.0-10.5)
[2017-10-20 08:08] LABS: ANION GAP 10 (5-19); BLOOD UREA NITROGEN 6 mg/dL (7-20); CALCIUM 9.3 mg/dL (8.4-10.2); CARBON DIOXIDE 25 mmol/L (22-30); CHLORIDE 101 mmol/L (98-107); GLUCOSE 99 mg/dL (75-110); POTASSIUM 4.5 mmol/L (3.6-5.0); SODIUM 136.2 mmol/L (137-145)
[2017-10-20] MEDS: AMLODIPINE BESYLATE 5 MG TABLET PO SCH (09:27)
[2017-10-20 12:15] VITALS: BP 136/72
--- NOTE | 2017-10-20 12:17 | PDOC DISCHARGE SUMMARY ---
General - Admit/Disc Date/PCP Admission Date/Primary Care Provider: 10/18/17 19:22 CHAPIS HSIEH MD Discharge Date: 10/20/17 - Discharge Diagnosis (1) Colitis Is this a current diagnosis for this admission?: Yes (2) Hyponatremia Is this a current diagnosis for this admission?: Yes (3) Dehydration Is this a current diagnosis for this admission?: Yes (4) Lower abdominal pain Is this a current diagnosis for this admission?: Yes (5) Diabetes mellitus type 2 in obese Is this a current diagnosis for this admission?: Yes (7) Anemia Is this a current diagnosis for this admission?: Yes (8) Diabetic neuropathy Is this a current diagnosis for this admission?: Yes - Additional Information Resuscitation Status: Full Code Discharge Diet: As Tolerated Discharge Activity: Activity As Tolerated Home Medications: Aripiprazole [Abilify] 20 mg PO DAILY 10/18/17 Cyclobenzaprine HCl [Flexeril 5 mg Tablet] 5 mg PO Q8HP PRN 10/18/17 Eszopiclone [Lunesta] 3 mg PO QHS 10/18/17 Gabapentin [Neurontin 400 mg Capsule] 400 mg PO Q8 10/18/17 Lisinopril [Prinivil] 20 mg PO DAILY 10/18/17 Metformin HCl [Metformin HCl ER] 500 mg PO Q12 10/18/17 Omeprazole 20 mg PO DAILY 10/18/17 Oxcarbazepine [Trileptal] 900 mg PO QHS 10/18/17 Sertraline HCl [Zoloft] 200 mg PO DAILY 10/18/17 Metronidazole [Flagyl 500 mg Tablet] 500 mg PO Q8 #21 tablet 10/20/17 History of Present Illness History of Present Illness: Mariely Fair is a 61 years old female who presented to emergency room accompanied by her daughter and complained of stomach pain mostly localized to the right lower quadrant. Patient refered that the pain was constant. Pain was accompanied by nausea and poor appetite. Patient admited that she had not been eating that much out of fear of getting diarrhea. Pain has been accompanied by watery diarrhea. Patient denied fever chills, back pain or chest pain. She denied being on any antibiotic recently. She had a hernia repair back of November of this year. She had been doing well otherwise. During the course of evaluation in emergency room patient was evaluated through CT of abdomen and pelvis. Posteriorly was seen by Dr. Palmer who thought that probably related to colitis and did not have to do with her previous hernia repair. Since sodium was low and white blood cell count was elevated our service was contacted for further evaluation. We opted then to admit patient for further management Hospital Course Hospital Course: Patient was placed on IV fluids since hyponatremia was deemed to be due to volume contraction. With intervention normalized. Patient was placed on Flagyl IV since initial concern was about the possibility of C. difficile. Results came back negative but opted to transition patient to oral Flagyl since she was responding to this intervention. Patient had been kept on URBANO diet. There was complete resolution of diarrhea and abdominal pain which related to colitis. She was discharged on Flagyl 500 mg 1 p.o. twice daily. Patient has been instructed as to take this medication at all times with food. She was also advised as to resume diet as tolerated but to try to avoid any lactose products. Since patient had achieved maximum benefit of hospitalization stay prompted to discharge under stable condition Physical Exam Vital Signs: Temp Pulse Resp BP Pulse Ox 98.4 F 65 14 140/64 H 93 10/20/17 08:11 10/20/17 08:11 10/20/17 08:11 10/20/17 08:11 10/20/17 08:11 Intake & Output 10/19/17 10/20/17 10/21/17 06:59 06:59 06:59 Intake Total 200 2733 Output Total 100 2350 Balance 100 383 Weight 74.5 kg 71.1 kg 71.1 kg General appearance: PRESENT: no acute distress, cooperative, obese Head exam: PRESENT: atraumatic, normocephalic Eye exam: PRESENT: EOMI, PERRLA Ear exam: PRESENT: normal external ear exam, TM's normal bilaterally Mouth exam: PRESENT: moist, neck supple Neck exam: PRESENT: full ROM. ABSENT: JVD, tenderness, thyromegaly Respiratory exam: PRESENT: clear to auscultation carly Cardiovascular exam: PRESENT: RRR. ABSENT: diastolic murmur, systolic murmur Vascular exam: PRESENT: normal capillary refill GI/Abdominal exam: PRESENT: normal bowel sounds, soft. ABSENT: ascites, distended, guarding, tenderness Neurological exam: PRESENT: alert, oriented to person, oriented to place, oriented to time Psychiatric exam: PRESENT: appropriate affect, normal mood Skin exam: PRESENT: normal color Results Laboratory Results: 10/20/17 07:23 10/20/17 07:23 10/20/17 10/20/17 07:23 07:23 WBC 9.3 RBC 4.18 Hgb 10.9 L Hct 32.8 L MCV 79 L MCH 26.2 L MCHC 33.3 RDW 14.5 H Plt Count 384 Seg Neutrophils % 65.8 Lymphocytes % 24.8 Monocytes % 7.4 Eosinophils % 1.5 Basophils % 0.5 Absolute Neutrophils 6.1 Absolute Lymphocytes 2.3 Absolute Monocytes 0.7 Absolute Eosinophils 0.1 Absolute Basophils 0.1 Sodium 136.2 L Potassium 4.5 Chloride 101 Carbon Dioxide 25 Anion Gap 10 BUN 6 L Creatinine 0.50 L Est GFR ( Amer) > 60 Est GFR (Non-Af Amer) > 60 Glucose 99 Calcium 9.3 Impressions: Abdomen/Pelvis CT 10/18/17 11:32 IMPRESSION: 1. INTERVAL SURGICAL REPAIR OF THE ABDOMINAL WALL HERNIA. THERE IS FLUID COLLECTION IN THE OPERATIVE SITE, PRESUMABLY RESIDUAL POSTOPERATIVE SEROMA OR RESOLVING HEMATOMA. 2. NO OTHER SIGNIFICANT OR ACUTE FINDING IN THE ABDOMEN OR PELVIS ON CT SCAN WITH IV CONTRAST. Plan Discharge Plan: Discharge home Time Spent: Less than 30 Minutes
== END 2017-10-20 13:30 | disposition home or self-care (01) | DRG 392 ==
LOC: ER 11:11 → OBSVTOIN 19:22 → EH 19:22 → 4S 10-19 00:50
PROVIDERS: ADMIT Family Medicine; ATTEND Family Medicine
PROC: 3E0234Z Introduction of Serum, Toxoid and Vaccine into Muscle, Percutaneous Approach (ICD-10-PCS; principal; 2017-10-20)
DX: K52.9 Noninfective gastroenteritis and colitis, unspecified (principal); E87.1 Hypo-osmolality and hyponatremia; E86.0 Dehydration; I10 Essential (primary) hypertension; E11.43 Type 2 diabetes mellitus with diabetic autonomic (poly)neuropathy; J45.909 Unspecified asthma, uncomplicated; M19.90 Unspecified osteoarthritis, unspecified site; D64.9 Anemia, unspecified; E66.9 Obesity, unspecified; Z79.84 Long term (current) use of oral hypoglycemic drugs; Z88.6 Allergy status to analgesic agent; Z68.37 Body mass index [BMI] 37.0-37.9, adult; Z82.61 Family history of arthritis; Z82.49 Family history of ischemic heart disease and other diseases of the circulatory system; Z80.9 Family history of malignant neoplasm, unspecified; Z23 Encounter for immunization; Z79.899 Other long term (current) drug therapy
CPT/HCPCS: 36415; 74177; 80048; 80053; 81001; 82962; 83690; 83735; 85025; 87040; 90686; 96361; 96365; 96375; 96376; 99285; J1644; J1885; J2270; J2405; J3480; J7030

== ENCOUNTER → 2017-12-05 | Outpatient (CLI) | payer MEDICAID ==
--- NOTE | 2017-12-05 12:19 | RADIOLOGY REPORT (SQ) ---
EXAM DESCRIPTION: LUMBAR SPINE COMPLETE COMPLETED DATE/TIME: 12/05/2017 11:00 am REASON FOR STUDY: LUMBAGO WITH SCIATICA, LEFT SIDE M54.42 LUMBAGO WITH SCIATICA, LEFT SIDE COMPARISON: None. NUMBER OF VIEWS: Five views including obliques. TECHNIQUE: AP, lateral, oblique, and sacral radiographic images acquired of the lumbar spine. LIMITATIONS: None. FINDINGS: MINERALIZATION: Normal. SEGMENTATION: Normal. No transitional anatomy. ALIGNMENT: Normal. VERTEBRAE: Maintained height. No fracture or worrisome bone lesion. DISCS: Mild disc space narrowing with small osteophytes. POSTERIOR ELEMENTS: Pedicles and facets are intact. Facet arthropathy. No pars defect or posterior arch defects. HARDWARE: None in the spine. PARASPINAL SOFT TISSUES: Normal. PELVIS: Intact as visualized. No fractures or worrisome bone lesions. SI joints intact. OTHER: No other significant finding. IMPRESSION: MILD DEGENERATIVE CHANGES. NO ACUTE FINDINGS. TECHNICAL DOCUMENTATION: JOB ID: [id number] [employer]- All Rights Reserved
== END ==
LOC: OD 10:17
PROVIDERS: ATTEND Family Medicine
DX: M54.42 Lumbago with sciatica, left side (principal)
CPT/HCPCS: 72110

== ENCOUNTER 2018-01-29 10:00 | Day surgery (SDC) | payer MEDICARE, MEDICAID ==
[2018-01-24 10:12] LABS: ABSOLUTE BASOPHILS # (AUTO) 0.1 10^3/uL (0.0-0.2); ABSOLUTE EOSINOPHILS # (AUTO) 0.1 10^3/uL (0.0-0.6); ABSOLUTE LYMPHOCYTES (AUTO) 2.4 10^3/uL (0.5-4.7); ABSOLUTE MONOCYTES (AUTO) 0.9 10^3/uL (0.1-1.4); ABSOLUTE NEUT (AUTO) 6.6 10^3/uL (1.7-8.2); BASOPHILS % (AUTO) 0.9 % (0-2); EOSINOPHILS % (AUTO) 1.1 % (0-6); HEMATOCRIT 36.7 % (36.0-47.0); HEMOGLOBIN 12.2 g/dL (12.0-15.5); LYMPHOCYTES % (AUTO) 23.8 % (13-45); MEAN CORPUSCULAR HEMOGLOBIN 25.7 pg (27.0-33.4); MEAN CORPUSCULAR HGB CONC 33.2 g/dL (32.0-36.0); MEAN CORPUSCULAR VOLUME 77 fl (80-97); MONOCYTES % (AUTO) 8.6 % (3-13); PLATELET COUNT 386 10^3/uL (150-450); RED BLOOD COUNT 4.74 10^6/uL (3.72-5.28); RED CELL DISTRIBUTION WIDTH 15.2 % (11.5-14.0); SEGMENTED NEUTROPHILS % (AUTO) 65.6 % (42-78); TOTAL CELLS COUNTED % (AUTO) 100 %
[2018-01-24 10:27] LABS: APPEARANCE,URINE SLIGHTLY-CLOUDY; BILIRUBIN,URINE NEGATIVE (NEGATIVE); CALCIUM OXALATE CRYSTALS,URINE FEW /HPF; COLOR,URINE YELLOW; GLUCOSE, URINE NEGATIVE (NEGATIVE); KETONES,URINE TRACE mg/dL (NEGATIVE); LEUKOCYTE ESTERASE,URINE NEGATIVE (NEGATIVE); NITRITE,URINE NEGATIVE (NEGATIVE); PROTEIN,URINE 30 mg/dL (NEGATIVE); URINE SPECIFIC GRAVITY 1.035
--- NOTE | 2018-01-24 10:37 | RADIOLOGY REPORT (SQ) ---
EXAM DESCRIPTION: CHEST PA/LATERAL COMPLETED DATE/TIME: 01/24/2018 10:23 am REASON FOR STUDY: PRE OP COMPARISON: 11/01/2016. EXAM PARAMETERS: NUMBER OF VIEWS: two views TECHNIQUE: Digital Frontal and Lateral radiographic views of the chest acquired. RADIATION DOSE: NA LIMITATIONS: none FINDINGS: LUNGS AND PLEURA: No opacities, masses or pneumothorax. No pleural effusion. MEDIASTINUM AND HILAR STRUCTURES: No masses or contour abnormalities. HEART AND VASCULAR STRUCTURES: Heart normal size. No evidence for failure. BONES: No acute findings. HARDWARE: None in the chest. OTHER: No other significant finding. IMPRESSION: NO SIGNIFICANT RADIOGRAPHIC FINDING IN THE CHEST. TECHNICAL DOCUMENTATION: JOB ID: [id number] [employer]- All Rights Reserved Reading location - IP/workstation name: [email or web address]
[2018-01-24 10:43] LABS: ANION GAP 13 (5-19); BLOOD UREA NITROGEN 17 mg/dL (7-20); CALCIUM 9.9 mg/dL (8.4-10.2); CARBON DIOXIDE 27 mmol/L (22-30); CHLORIDE 94 mmol/L (98-107); GLUCOSE 102 mg/dL (75-110); POTASSIUM 5.1 mmol/L (3.6-5.0); SODIUM 134.2 mmol/L (137-145)
--- NOTE | 2018-01-24 13:53 | EKG REPORT ---
SEVERITY:- BORDERLINE ECG - SINUS RHYTHM BORDERLINE T ABNORMALITIES, ANTERIOR LEADS : Confirmed by: Tre Poon MD 24-Jan-2018 13:53:05
[~2018-01-29 10:00] MED LIST changes: +CEFAZOLIN 2 GM/D5W RTU 2 GM/50 ML RTUPB IV PRN; -KETOROLAC TROMETHAMINE 0.45% 4 DROP/0.4 ML DROPERETTE OD PRN; +LIDOCAINE 0.5% INJ-PF (5 MG/ML) 50 ML SDV SUBCUT PRN; +NORMAL SALINE 1000 ML (RENAL PATIENTS) IV PRN
[2018-01-29 11:01] LABS: POTASSIUM 4.6 mmol/L (3.6-5.0)
[2018-01-29] MEDS ORDERED: KETAMINE HCL INJ 500 MG/10 ML VIAL ONE (13:03)
[2018-01-29] MEDS ORDERED: FENTANYL CITRATE INJ/PF 250 MCG/5 ML AMPULE ONE (13:04)
[2018-01-29] MEDS ORDERED: BUPIVACAINE HCL 0.5 % INJ/PF 30 ML SDV ONE (13:04)
[2018-01-29] MEDS ORDERED: PROPOFOL INJ 200 MG/20 ML VIAL IV ONE (13:04)
[2018-01-29] MEDS ORDERED: MIDAZOLAM 2 MG/2 ML INJ ONE (13:04)
[2018-01-29] MEDS ORDERED: LIDOCAINE 1% INJ-PF (10 MG/ML) 30 ML SDV ONE (13:24)
[2018-01-29] MEDS ORDERED: FENTANYL CITRATE INJ/PF 100 MCG/2 ML AMPUL IV PRN ×6 (14:00→14:01)
[2018-01-29] MEDS ORDERED: PROMETHAZINE HCL INJ 25 MG/1 ML VIAL IV PRN ×4 (14:00→14:01)
[2018-01-29] MEDS ORDERED: MORPHINE SULFATE 10 MG/ML INJ IV PRN ×2 (14:00→14:01)
[2018-01-29] MEDS ORDERED: DIPHENHYDRAMINE HCL 50 MG/ML VIAL IV PRN ×2 (14:00→14:01)
[2018-01-29] MEDS ORDERED: MEPERIDINE HCL/PF INJ 25 MG/1 ML DISP.SYRIN IV PRN ×2 (14:00→14:01)
[2018-01-29] MEDS ORDERED: OXYCODONE-ACETAMINOPHEN 5-325 MG TABLET PO PRN ×5 (14:00→14:37)
[2018-01-29] MEDS ORDERED: ALBUTEROL SULFATE HFA (90 MCG/PUFF) 8 GM MDI (1 MDI/ER DISP) IH PRN (14:36)
[2018-01-29] MEDS ORDERED: RINGERS SOLUTION,LACTATED 1,000 ML IV PRN (14:37)
[2018-01-29] MEDS ORDERED: KETOROLAC TROMETHAMINE 60 MG/2 ML SDV IM PRN (14:37)
[2018-01-29] MEDS ORDERED: ONDANSETRON HCL INJ/PF 4 MG/2 ML SDV IV PRN (14:37)
--- NOTE | 2018-01-29 14:41 | Discharge Summary ---
Discharge Summary (SDC) - Discharge Final Diagnosis: Left DIP joint arthritis of thumb Date of Surgery: 01/29/18 Discharge Date: 01/29/18 Condition: Good Treatment or Instructions: Schedule Follow Up w/ Dr. João Harris @ [facility] for Surgery to be seen in 10-14 days or as scheduled [place]: [place]: [place]: May remove dressing on postop day #3, keep incision covered and dry. Ice and elevate May begin finger range of motion attempting to make full fist. Stool softener of choice when on pain medication. Prescriptions: Hydrocodone/Acetaminophen [Hydrocodon-Acetaminophen 5-325] 1 each PO Q4 #40 tablet Referrals: CHAPIS HSIEH MD [Primary Care Provider] - Discharge Diet: As Tolerated, Regular Respiratory Treatments at Home: Deep Breathing/Coughing Discharge Activity: No Lifting Over 10 Pounds, No Lifting/Push/Pulling Home Care Assistance: None Needed Report the Following to Your Physician Immediately: Shortness of Breath, Fever over 101 Degrees, Unusual Bleeding, Redness, Swelling, Warmth, Drainage-Yellow
[2018-01-29] MEDS: FENTANYL CITRATE INJ/PF 100 MCG/2 ML AMPUL ONE ×2 (14:45→14:50)
--- NOTE | 2018-01-29 14:51 | Operative Report ---
Operative Report DATE OF SURGERY: 01/29/18 PREOPERATIVE DIAGNOSIS: Left Thumb DIP Joint Arthritis POSTOPERATIVE DIAGNOSIS: Same OPERATION: Left Thumb DIP Joint Fusion SURGEON: FLOR TREADWELL 1ST PHOTO STYLIST: CHRISTOPH ROBLES ANESTHESIA: GA COMPLICATIONS: None ESTIMATED BLOOD LOSS: Minimal PROCEDURE: Indication for above procedure: 62-year-old female with long-standing history of IP joint arthritis. Patient has significant pain along the DIP joint of her thumb with spurs which cause her discomfort with attempted pitch. Patient has attempted conservative measures without resolution of her symptoms. We discussed treatment options including operative versus nonoperative intervention. Risks and benefits were explained to the patient patient verbalized understanding consented for the procedure. Procedure In Detail: Patient was seen and evaluated in the preoperative holding area. The LEFT upper extremity was initialized and marked. Patient received 2g of Ancef IV for bacterial prophylaxis. Patient was taken back to the operative room where transferred to the operative table. Once they were adequately anesthetized a nonsterile tourniquet was placed on the upper extremity. A surgical team debriefing was performed ensuring all instrumentation was available, the surgical procedure was discussed with possible concerns reviewed. A digital block was performed utilizing 10 mL 50:50 mixture of 0.5% Marcaine and 1% lidocaine without epinephrine. The upper extremity was prepped with chlorhexidine and alcohol and draped in a sterile fashion. A timeout was done identifying correct patient, procedure and extremity everyone in attendance agree with this and verbalized no concerns. The extremity was exsanguinated the tourniquet was inflated to 250 mmHg. Transverse skin incision was made over the DIP joint. Skin flaps were elevated and the extensor mechanism exposed. The DIP joint was entered by splitting the extensor tendon. Collateral ligaments were carefully released to remove any peripheral osteophytes including large volar osteophyte along the distal phalanx. The distal phalanx and proximal phalanx articular surface were then debrided removing any the sclerotic bone down to normal cancellus bone. The DIP joint was then held in a neutral position and a K wire was placed transarticular. C-arm fluoroscopy was obtained which demonstrated acceptable reduction of the arthrodesis with appropriate placement of the guidewire. I then placed a second guidewire as an anti-rotational pin. Cannulated drill was utilized and a 30 mm Acumed mini compression screw was placed. I got optimal interfragmentary compression. The wound was then irrigated and tourniquet removed. Any peripheral bleeding was coagulated bipolar cautery. Any remaining defect at the DIP joint was filled with cancellus bone which was removed during debridement. The extensor mechanism was reapproximated with 2-0 Vicryl suture. Skin was closed with interrupted 4-0 nylon suture. Sponge counts, instrument counts, needle counts counts were correct. Patient was then awoken from anesthesia. Transferred from the operating room table to the operating room stretcher. There was no intraoperative complications patient tolerated procedure well stable to PACU. Postoperative plan: Patient will follow-up as scheduled for wound check. They will call with any questions or concerns.
[2018-01-29] MEDS ORDERED: ACETAMINOPHEN 100 ML IV ONE (15:01)
--- NOTE | 2018-01-29 15:31 | RADIOLOGY REPORT (SQ) ---
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 FLUOROSCOPY TIME: 1 minutes 5 seconds 3 images saved to PACS. TECHNIQUE: Intra-operative images acquired during surgical procedure to evaluate progress. NUMBER OF IMAGES: 3 images LIMITATIONS: None. FINDINGS: Fluoroscopic images were obtained during internal fixation of the 1st digit of the left willard nd. Orthopedic hardware is identified in position. Please refer to the surgeon's operative report f or additional information IMPRESSION: IMAGE(S) OBTAINED DURING PROCEDURE. COMMENT: Quality ID [id number]: Final reports for procedures using fluoroscopy that document radiation exp osure indices, or exposure time and number of fluorographic images (if radiation exposure indices are not available) Please consult full operative report of the attending physician for description of the procedure. TECHNICAL DOCUMENTATION: JOB ID: [id number] [employer]- All Rights Reserved Reading location - IP/workstation name: [email or web address]
--- NOTE | 2018-01-29 15:32 | RADIOLOGY REPORT (SQ) ---
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 IMPRESSION: Please see combined report for performance of procedure and radiologic supervision and i nterpretation. Reading location - IP/workstation name: [email or web address]
[2018-01-29 16:38] VITALS: BP 148/66
[2018-01-29] MEDS ORDERED: GABAPENTIN 400 MG CAPSULE PO SCH (18:00)
[2018-01-29] MEDS ORDERED: (PENDING PHARMACY ID) (Metformin Hcl [Metformin Hcl Er] 500 MG) PO SCH (22:00)
[2018-01-29] MEDS ORDERED: ARIPIPRAZOLE 5 MG TABLET PO SCH (22:00)
[2018-01-29] MEDS ORDERED: ZOLPIDEM TARTRATE 5 MG TABLET PO SCH (22:00)
[2018-01-29] MEDS ORDERED: OXCARBAZEPINE 900 MG PO SCH (22:00)
[2018-01-29] MEDS ORDERED: (PENDING PHARMACY ID) (Aripiprazole [Abilify] 20 MG) PO SCH (22:00)
[2018-01-29] MEDS ORDERED: OXCARBAZEPINE 150 MG TABLET PO SCH (22:00)
[2018-01-29] MEDS ORDERED: (PENDING PHARMACY ID) (Sertraline Hcl [Zoloft] 200 MG) PO SCH (22:00)
[2018-01-29] MEDS ORDERED: SERTRALINE HCL 50 MG TABLET PO SCH (22:00)
[2018-01-30] MEDS ORDERED: LANSOPRAZOLE 15 MG TAB.RAP.DR PO SCH (06:00)
[2018-01-30] MEDS ORDERED: (PENDING PHARMACY ID) (Lisinopril [Prinivil] 20 MG) PO SCH (10:00)
[2018-01-30] MEDS ORDERED: LISINOPRIL 10 MG TABLET PO SCH (10:00)
[2018-01-30] MEDS ORDERED: MELOXICAM 7.5 MG TABLET PO SCH (10:00)
== END 2018-01-29 16:25 | disposition home or self-care (01) ==
LOC: OROUT 10:00
PROVIDERS: ATTEND Orthopaedic Surgery
PROC: 0RGX04Z Fusion of Left Finger Phalangeal Joint with Internal Fixation Device, Open Approach (ICD-10-PCS; principal; 2018-01-29 11:45)
DX: M15.1 Heberden's nodes (with arthropathy) (principal); M06.9 Rheumatoid arthritis, unspecified; I10 Essential (primary) hypertension; E11.9 Type 2 diabetes mellitus without complications; E66.01 Morbid (severe) obesity due to excess calories; J45.909 Unspecified asthma, uncomplicated; E78.5 Hyperlipidemia, unspecified; Z79.891 Long term (current) use of opiate analgesic; Z79.899 Other long term (current) drug therapy; Z88.5 Allergy status to narcotic agent; Z79.84 Long term (current) use of oral hypoglycemic drugs; Z68.37 Body mass index [BMI] 37.0-37.9, adult
CPT/HCPCS: 93005; 36415 ×2; 82947; 84132; 85025; 80048; 81001; 83036; 71046; 73120; 93010; 26860; C1769; C1713; J2250; J3490 ×4; J3010; A9270; J2704; J0690; J0131; 01830

== ENCOUNTER → 2018-03-04 | Outpatient (CLI) | payer MEDICARE, MEDICAID ==
[2018-03-04 14:34] LABS: ABSOLUTE BASOPHILS # (AUTO) 0.1 10^3/uL (0.0-0.2); ABSOLUTE EOSINOPHILS # (AUTO) 0.1 10^3/uL (0.0-0.6); ABSOLUTE LYMPHOCYTES (AUTO) 2.4 10^3/uL (0.5-4.7); ABSOLUTE MONOCYTES (AUTO) 0.8 10^3/uL (0.1-1.4); ABSOLUTE NEUT (AUTO) 7.1 10^3/uL (1.7-8.2); EOSINOPHILS % (AUTO) 0.7 % (0-6); HEMATOCRIT 34.5 % (36.0-47.0); HEMOGLOBIN 11.4 g/dL (12.0-15.5); LYMPHOCYTES % (AUTO) 22.5 % (13-45); MEAN CORPUSCULAR HEMOGLOBIN 25.4 pg (27.0-33.4); MEAN CORPUSCULAR VOLUME 77 fl (80-97); MONOCYTES % (AUTO) 7.9 % (3-13); PLATELET COUNT 363 10^3/uL (150-450); RED BLOOD COUNT 4.48 10^6/uL (3.72-5.28); RED CELL DISTRIBUTION WIDTH 15.2 % (11.5-14.0); SEGMENTED NEUTROPHILS % (AUTO) 67.9 % (42-78); TOTAL CELLS COUNTED % (AUTO) 100 %; WHITE BLOOD COUNT 10.5 10^3/uL (4.0-10.5)
[2018-03-04 14:40] LABS: APPEARANCE,URINE CLEAR; BILIRUBIN,URINE NEGATIVE (NEGATIVE); COLOR,URINE YELLOW; GLUCOSE, URINE NEGATIVE (NEGATIVE); KETONES,URINE NEGATIVE (NEGATIVE); LEUKOCYTE ESTERASE,URINE NEGATIVE (NEGATIVE); NITRITE,URINE NEGATIVE (NEGATIVE); PROTEIN,URINE NEGATIVE (NEGATIVE); URINE SPECIFIC GRAVITY 1.018; UROBILINOGEN,URINE NEGATIVE mg/dL (<2.0)
[2018-03-04 14:54] LABS: ANION GAP 16 (5-19); BLOOD UREA NITROGEN 16 mg/dL (7-20); CALCIUM 9.7 mg/dL (8.4-10.2); CARBON DIOXIDE 25 mmol/L (22-30); CHLORIDE 91 mmol/L (98-107); GLUCOSE 99 mg/dL (75-110); POTASSIUM 5.2 mmol/L (3.6-5.0); SODIUM 132.1 mmol/L (137-145)
== END ==
LOC: OD 12:55
PROVIDERS: ATTEND Orthopaedic Surgery
DX: Z01.812 Encounter for preprocedural laboratory examination (principal); Z01.818 Encounter for other preprocedural examination; E11.9 Type 2 diabetes mellitus without complications
CPT/HCPCS: 36415; 80048; 81001; 83036; 85025

== ENCOUNTER 2018-03-25 05:30 | Inpatient (IN) | payer MEDICARE, MEDICAID ==
[~2018-03-25 05:30] MED LIST changes: +BUPIVACAINE INJ/PF LIPOSOME/PF 266 MG/20 ML SDV IJ PRN; -CEFAZOLIN 2 GM/D5W RTU 2 GM/50 ML RTUPB IV PRN; +CEFAZOLIN INJ 1 GM VIAL IV PRN; +IBUPROFEN 800 MG/NS 250 ML IV PRN; +LANSOPRAZOLE 15 MG TAB.RAP.DR PO PRN; -LIDOCAINE 0.5% INJ-PF (5 MG/ML) 50 ML SDV SUBCUT PRN; -NORMAL SALINE 1000 ML (RENAL PATIENTS) IV PRN; +NORMAL SALINE 1000 ML 1,000 ML IV PRN; +OXYCODONE HCL SR 10 MG TABLET PO PRN; +VANCOMYCIN HCL 1,000 MG in DEXTROSE 5%-WATER 250 ML IV PRN
[2018-03-25] MEDS ORDERED: LIDOCAINE 2% INJ-PF (20 MG/ML) 10 ML AMPUL ONE (06:28)
[2018-03-25] MEDS ORDERED: DEXAMETHASONE SOD PHOSPHATE INJ 4 MG/1 ML VIAL ONE (06:28)
[2018-03-25] MEDS ORDERED: FENTANYL CITRATE INJ/PF 100 MCG/2 ML AMPUL ONE (06:28)
[2018-03-25] MEDS ORDERED: MIDAZOLAM 2 MG/2 ML INJ ONE (06:28)
[2018-03-25] MEDS ORDERED: ONDANSETRON HCL INJ/PF 4 MG/2 ML SDV ONE (06:29)
[2018-03-25] MEDS ORDERED: PROPOFOL INJ 200 MG/20 ML VIAL IV ONE (06:29)
[2018-03-25] MEDS ORDERED: ACETAMINOPHEN 100 ML IV ONE (06:29)
[2018-03-25] MEDS ORDERED: TETRACAINE HCL/PF 20MG/2ML AMPULE (SPINAL) ONE (06:30)
[2018-03-25] MEDS ORDERED: THROMBIN (BOVINE) TOPICAL 20000 UNIT VIAL ONE (06:42)
[2018-03-25] MEDS ORDERED: BUPIVACAINE INJ/PF LIPOSOME/PF 266 MG/20 ML SDV ONE (06:43)
[2018-03-25] MEDS ORDERED: THROMBIN (BOVINE) 5000 UNIT EPITAXIS KIT ONE (06:43)
[2018-03-25] MEDS ORDERED: DIPHENHYDRAMINE HCL 50 MG/ML VIAL IV PRN ×2 (08:01→08:28)
[2018-03-25] MEDS ORDERED: PROMETHAZINE HCL INJ 25 MG/1 ML VIAL IV PRN ×2 (08:01)
[2018-03-25] MEDS ORDERED: MORPHINE SULFATE 10 MG/ML INJ IV PRN ×3 (08:01→08:28)
[2018-03-25] MEDS ORDERED: ONDANSETRON HCL INJ/PF 4 MG/2 ML SDV IV PRN ×2 (08:01→08:28)
[2018-03-25] MEDS ORDERED: MEPERIDINE HCL/PF INJ 25 MG/1 ML DISP.SYRIN IV PRN (08:01)
[2018-03-25] MEDS ORDERED: FENTANYL CITRATE INJ/PF 100 MCG/2 ML AMPUL IV PRN ×3 (08:01)
--- NOTE | 2018-03-25 08:27 | Operative Report ---
Operative Report DATE OF SURGERY: 03/25/18 PREOPERATIVE DIAGNOSIS: Left knee arthritis OPERATION: Left knee arthroplasty SURGEON: JARVIS TERRY ANESTHESIA: Spinal TISSUE REMOVED OR ALTERED: Bone to pathology ESTIMATED BLOOD LOSS: 150 PROCEDURE: Implants used: Femur: Charan triathlon size 2 CR femur Tibia: 2 tibia Tibial liner: 11 mm CS insert Patella: 29 mm oval patella Procedure with the patient supine on the operating table the left the limb is prepped and draped in a sterile fashion. The limb was elevated for exsanguination and the tourniquet inflated to 280 torr. Once the cases started it is clear that a venous tourniquet is present. The tourniquet was subsequently deflated for the remainder the case. A standard midline median parapatellar approach the knee is taken. Access is gained to the femoral canal through the intercondylar notch. Intramedullary alignment instrumentation used to resect 10 mm of distal femur in 5 of valgus. Sizing guide indicated a size 2 femur. Appropriate cutting jig is then used to fashion anterior posterior and chamfer cuts. A trial reduction femurs performed and this is judged to be adequate. Attention was next turned to the tibia. Using an extra medullary alignment system 9 millimeters was resected off the lateral tibial plateau. This is sized to a size 2 tibia. A trial reduction was now performed with a two femur and a two tibia using a 11 millimeters spacer. It is full extension and central patellofemoral tracking. The articular surface the patella was next resected using an oscillating saw. All trial implants were removed. Polymethylmethacrylate is mixed and used to cement the above implants in place. On adequate curing the cement excess cement was removed the tourniquet was deflated hemostasis obtained the wound is then closed in layers using interrupted Vicryl followed by eduardo. A sterile compressive dressing was applied and the patient returned to recovery room in satisfactory condition.
[2018-03-25] MEDS ORDERED: ONDANSETRON 4 MG TAB.RAPDIS PO PRN (08:28)
[2018-03-25] MEDS ORDERED: MORPHINE SULFATE 10 MG/ML INJ IM PRN (08:28)
[2018-03-25] MEDS ORDERED: ZOLPIDEM TARTRATE 5 MG TABLET PO PRN (08:28)
[2018-03-25] MEDS ORDERED: MAG HYDROX/AL HYDROX/SIMETH SUSP 30 ML UDCUP PO PRN (08:28)
[2018-03-25] MEDS ORDERED: RINGERS SOLUTION,LACTATED 1,000 ML IV PRN (08:28)
[2018-03-25] MEDS ORDERED: ACETAMINOPHEN 325 MG TABLET PO PRN (08:28)
[2018-03-25] MEDS ORDERED: DEXTROSE 40% GEL 15 GM TUBE PO PRN (08:42)
[2018-03-25] MEDS ORDERED: DEXTROSE 40% GEL 15 GM TUBE X 2 PO PRN (08:42)
[2018-03-25] MEDS ORDERED: INSULIN LISPRO 100 UNIT/ML 3 ML VIAL SUBCUT PRN (08:42)
[2018-03-25] MEDS ORDERED: GLUCAGON,HUMAN RECOMB 1 MG INJ IM PRN (08:42)
[2018-03-25] MEDS ORDERED: DEXTROSE 50%-WATER SYRINGE 12.5 GM/25 ML DOSE IV PRN (08:42)
[2018-03-25] MEDS ORDERED: DEXTROSE 50%-WATER SYRINGE 25 GM/50 ML DOSE IV PRN (08:42)
--- NOTE | 2018-03-25 09:31 | RADIOLOGY REPORT (SQ) ---
EXAM DESCRIPTION: KNEE LEFT 2 VIEWS COMPLETED DATE/TIME: 03/25/2018 9:17 am REASON FOR STUDY: Post OP -Long Cassette in PACU M17.12 UNILATERAL PRIMARY OSTEOARTHRITIS, LEFT KNE E COMPARISON: None. NUMBER OF VIEWS: Two views. TECHNIQUE: AP, lateral, and both oblique radiographic images acquired of the left knee. LIMITATIONS: None. FINDINGS: MINERALIZATION: Normal. BONES: Status post left knee arthroplasty since the prior examination dated 08/16/2016. Post operati ve changes are noted. JOINT: No effusion. SOFT TISSUES: Soft tissue swelling. OTHER: No other significant finding. IMPRESSION: 1 Status post left knee arthroplasty since the prior examination dated 08/16/2016. Post operative changes are noted. TECHNICAL DOCUMENTATION: JOB ID: [id number] [employer]- All Rights Reserved Reading location - IP/workstation name: [email or web address]
[2018-03-25] MEDS ORDERED: SERTRALINE HCL 50 MG TABLET PO SCH (10:00)
[2018-03-25] MEDS ORDERED: (PENDING PHARMACY ID) (Metformin Hcl [Metformin Hcl Er] 500 MG) PO SCH (10:00)
[2018-03-25] MEDS ORDERED: (PENDING PHARMACY ID) (Lisinopril [Prinivil] 20 MG) PO SCH (10:00)
[2018-03-25] MEDS ORDERED: TRANEXAMIC ACID INJ/PF 1,000 MG/10 ML SDV IV ONE (10:30)
[2018-03-25] MEDS: OXYCODONE HCL IR 5 MG TABLET PO PRN ×2 (10:38→16:54)
[2018-03-25] MEDS: OXYCODONE HCL SR 10 MG TABLET PO SCH ×2 (10:39→22:06)
[2018-03-25] MEDS: PRENATAL VITAMIN W DHA CAPSULE PO SCH (10:39)
--- NOTE | 2018-03-25 10:47 | Physician Advisory Note ---
Physician Advisor ProgressNote .: Pursuant to the plan for [facility] [place], I have reviewed the medical record for this patient. Physician Advisor Statement: Surgical necessity: Attending, please document: 1. clarification of what could appear to be a discrepancy of documentation between H&P (stating no difficulty with walking/stairs) and pre-op nursing eval (stating she is unable to walk up 1 flight of stairs or walk >1mile...). 2. all specific pre-op x-ray/MRI findings present that [facility] looks for: subchondral cysts, subchondral sclerosis, periarticular osteophytes, joint space narrowing, joint subluxation, AVN/osteonecrosis).. STatus: Pt with PROMIS score of only 12, with RA/DM-2/asthma, (&, per prior H&P 10/18/17 , diabetic neuropathy), along with obesity/BMI 39.2. Sounds highly unlikely to have a chance of progressing w/PT quickly enough for d /c on POD#1. Per current [facility] guidelines, sounds appropriate for Inpatient status. CK
[2018-03-25] MEDS ORDERED: PHENYLEPHRINE HCL INJ/PF 10 MG/1 ML SDV ONE (12:08)
[2018-03-25] MEDS: GABAPENTIN 400 MG CAPSULE PO SCH ×2 (14:56→20:34)
[2018-03-25] MEDS: MORPHINE SULFATE 10 MG/ML INJ IV PRN (14:57)
[2018-03-25] MEDS: METFORMIN HCL 500 MG TABLET PO SCH (16:54)
[2018-03-25] MEDS: SENNOSIDES/DOCUSATE 8.6-50 MG 1 EACH TABLET PO SCH (18:29)
[2018-03-25] MEDS ORDERED: VANCOMYCIN HCL 1,000 MG in DEXTROSE 5%-WATER 250 ML IV ONE (20:28)
[2018-03-25] MEDS: ARIPIPRAZOLE 5 MG TABLET PO SCH (20:33)
[2018-03-25] MEDS: SERTRALINE HCL 50 MG TABLET PO SCH (20:34)
[2018-03-25] MEDS: OXCARBAZEPINE 150 MG TABLET PO SCH (20:35)
[2018-03-25] MEDS ORDERED: (PENDING PHARMACY ID) (Aripiprazole [Abilify] 20 MG) PO SCH (22:00)
[2018-03-25] MEDS ORDERED: (PENDING PHARMACY ID) (Sertraline Hcl [Zoloft] 200 MG) PO SCH (22:00)
[2018-03-25] MEDS ORDERED: OXCARBAZEPINE 900 MG PO SCH (22:00)
[2018-03-26] MEDS: OXYCODONE HCL IR 5 MG TABLET PO PRN ×3 (02:22→14:10)
[2018-03-26] MEDS: MORPHINE SULFATE 10 MG/ML INJ IV PRN (05:01)
[2018-03-26] MEDS: LANSOPRAZOLE 30 MG TAB.RAP.DR PO SCH (05:06)
[2018-03-26] MEDS: GABAPENTIN 400 MG CAPSULE PO SCH ×3 (05:06→21:15)
[2018-03-26 06:25] LABS: HEMATOCRIT 22.9 % (36.0-47.0); MEAN CORPUSCULAR HEMOGLOBIN 25.7 pg (27.0-33.4); MEAN CORPUSCULAR HGB CONC 33.3 g/dL (32.0-36.0); MEAN CORPUSCULAR VOLUME 77 fl (80-97); PLATELET COUNT 255 10^3/uL (150-450); RED BLOOD COUNT 2.96 10^6/uL (3.72-5.28); RED CELL DISTRIBUTION WIDTH 14.7 % (11.5-14.0); WHITE BLOOD COUNT 10.6 10^3/uL (4.0-10.5)
[2018-03-26 06:47] LABS: HEMOGLOBIN 7.6 g/dL (12.0-15.5)
[2018-03-26 06:48] LABS: ANION GAP 11 (5-19); BLOOD UREA NITROGEN 12 mg/dL (7-20); CALCIUM 8.4 mg/dL (8.4-10.2); CARBON DIOXIDE 25 mmol/L (22-30); CHLORIDE 97 mmol/L (98-107); GLUCOSE 135 mg/dL (75-110); POTASSIUM 4.4 mmol/L (3.6-5.0); SODIUM 132.8 mmol/L (137-145)
[2018-03-26] MEDS ORDERED: NORMAL SALINE 250 ML IV PRN (07:00)
--- NOTE | 2018-03-26 07:03 | PDOC PROGRESS REPORT ---
Subjective Progress Note for:: 03/26/18 Reason For Visit: M17.12 UNILATERAL PRIMARY OSTEOARTHRITIS, LEFT KNE 62-year-old white female postop day 1 from left knee arthroplasty. Patient with limited progress with physical therapy yesterday. Physical Exam Vital Signs: Temp Pulse Resp BP Pulse Ox 36.8 C 84 17 106/62 90 L 03/25/18 23:14 03/25/18 23:14 03/25/18 23:14 03/25/18 23:20 03/25/18 23:14 Intake & Output 03/25/18 03/26/18 03/27/18 06:59 06:59 06:59 Intake Total 0 4338 Output Total 2000 Balance 0 2338 Weight 85.9 kg General appearance: PRESENT: mild distress Head exam: PRESENT: normocephalic Respiratory exam: PRESENT: unlabored Cardiovascular exam: PRESENT: RRR Pulses: PRESENT: +1 pedal pulses bilateral Vascular exam: PRESENT: normal capillary refill GI/Abdominal exam: PRESENT: soft Rectal exam: PRESENT: deferred Extremities exam: PRESENT: other - Left lower extremity dressing clean dry and intact. Neurological exam: PRESENT: alert, awake, oriented to person, oriented to place , oriented to time, oriented to situation, CN II-XII grossly intact. ABSENT: motor sensory deficit Psychiatric exam: PRESENT: appropriate affect, normal mood. ABSENT: homicidal ideation, suicidal ideation Skin exam: PRESENT: dry, intact, warm. ABSENT: cyanosis, rash Results Laboratory Results: 03/26/18 06:06 03/26/18 06:06 WBC 10.6 H RBC 2.96 L Hgb 7.6 L Hct 22.9 L MCV 77 L MCH 25.7 L MCHC 33.3 RDW 14.7 H Plt Count 255 Impressions: Knee X-Ray 03/25/18 08:30 IMPRESSION: 1 Status post left knee arthroplasty since the prior examination dated 08/16/2016. Post operative changes are noted. Status: Imported from PACS Assessment & Plan - Diagnosis (1) Arthritis of left knee Is this a current diagnosis for this admission?: Yes Plan: 62-year-old female postop day 1 left knee arthroplasty. Patient complaining of pain this morning. Narcotic medication is modified. Plan will be for ongoing physical therapy and weightbearing as tolerated basis. This point the patient does not have the functional capacity to be considered for discharge. (2) Acute blood loss as cause of postoperative anemia Is this a current diagnosis for this admission?: Yes Plan: Patient with hematocrit 22.9%. She will receive 2 units of packed red blood cells. - Time Time Spent with patient: 15-24 minutes Anticipated discharge: Home with Homehealth Within: Other
[2018-03-26] MEDS: ASPIRIN 81 MG TABLET, ENT COATED PO SCH (09:04)
[2018-03-26] MEDS: OXYCODONE HCL SR 10 MG TABLET PO SCH ×2 (09:04→21:15)
[2018-03-26] MEDS: SENNOSIDES/DOCUSATE 8.6-50 MG 1 EACH TABLET PO SCH ×2 (09:05→18:08)
[2018-03-26] MEDS: LISINOPRIL 10 MG TABLET PO SCH (09:05)
[2018-03-26] MEDS: PRENATAL VITAMIN W DHA CAPSULE PO SCH (09:06)
[2018-03-26] MEDS: METFORMIN HCL 500 MG TABLET PO SCH ×2 (09:06→16:26)
[2018-03-26] MEDS: HYDROMORPHONE HCL INJ/PF 2 MG/ML AMPULE IV PRN (18:35)
[2018-03-26] MEDS: SERTRALINE HCL 50 MG TABLET PO SCH (21:15)
[2018-03-26] MEDS: OXCARBAZEPINE 150 MG TABLET PO SCH (21:15)
[2018-03-26] MEDS: ARIPIPRAZOLE 5 MG TABLET PO SCH (21:15)
[2018-03-27] MEDS: GABAPENTIN 400 MG CAPSULE PO SCH ×3 (05:13→21:34)
[2018-03-27] MEDS: LANSOPRAZOLE 30 MG TAB.RAP.DR PO SCH (05:13)
[2018-03-27 06:50] LABS: HEMATOCRIT 30.1 % (36.0-47.0); MEAN CORPUSCULAR HEMOGLOBIN 26.3 pg (27.0-33.4); MEAN CORPUSCULAR HGB CONC 33.2 g/dL (32.0-36.0); MEAN CORPUSCULAR VOLUME 79 fl (80-97); PLATELET COUNT 196 10^3/uL (150-450); RED BLOOD COUNT 3.81 10^6/uL (3.72-5.28); RED CELL DISTRIBUTION WIDTH 15.8 % (11.5-14.0); WHITE BLOOD COUNT 12.9 10^3/uL (4.0-10.5)
--- NOTE | 2018-03-27 07:07 | PDOC PROGRESS REPORT ---
Subjective Progress Note for:: 03/27/18 Reason For Visit: M17.12 UNILATERAL PRIMARY OSTEOARTHRITIS, LEFT KNE 62-year-old female status post left knee arthroplasty with relatively slow postoperative rehabilitation secondary to pain control. Patient had been switched from morphine to Dilaudid yesterday in attempt to improve her pain control. Physical Exam Vital Signs: Temp Pulse Resp BP Pulse Ox 37.0 C 105 H 16 127/55 H 95 03/26/18 23:07 03/26/18 23:07 03/26/18 23:07 03/26/18 23:07 03/26/18 23:07 Intake & Output 03/26/18 03/27/18 03/28/18 06:59 06:59 06:59 Intake Total 4338 1386 Output Total 1999 Balance 2338 1386 Weight 85.9 kg 86.4 kg General appearance: PRESENT: mild distress Head exam: PRESENT: normocephalic Respiratory exam: PRESENT: unlabored Cardiovascular exam: PRESENT: RRR Pulses: PRESENT: +1 pedal pulses bilateral Vascular exam: PRESENT: normal capillary refill GI/Abdominal exam: PRESENT: soft Rectal exam: PRESENT: deferred Extremities exam: PRESENT: other - Left lower extremity dressing clean dry and intact Neurological exam: PRESENT: alert, awake, oriented to person, oriented to place , oriented to time, oriented to situation. ABSENT: motor sensory deficit Psychiatric exam: PRESENT: appropriate affect, normal mood. ABSENT: homicidal ideation, suicidal ideation Skin exam: PRESENT: dry, intact, warm. ABSENT: cyanosis, rash Results Laboratory Results: 03/27/18 06:23 03/26/18 06:06 03/26/18 03/27/18 08:08 06:23 WBC 12.9 H RBC 3.81 Hgb 10.0 L D Hct 30.1 L MCV 79 L MCH 26.3 L MCHC 33.2 RDW 15.8 H Plt Count 196 Blood Type B POSITIVE Antibody Screen NEGATIVE Impressions: Knee X-Ray 03/25/18 08:30 IMPRESSION: 1 Status post left knee arthroplasty since the prior examination dated 08/16/2016. Post operative changes are noted. Status: Imported from PACS Assessment & Plan - Diagnosis (1) Arthritis of left knee Is this a current diagnosis for this admission?: Yes Plan: Patient to continue on with postoperative rehabilitation. At this point she does not have the functional capacity to consider discharge to home. (2) Acute blood loss as cause of postoperative anemia Is this a current diagnosis for this admission?: Yes Plan: Resolved hematocrit 30%. - Time Time Spent with patient: 15-24 minutes Anticipated discharge: Home with Homehealth Within: Other
[2018-03-27] MEDS: METFORMIN HCL 500 MG TABLET PO SCH ×2 (07:56→16:53)
[2018-03-27] MEDS: HYDROMORPHONE HCL INJ/PF 2 MG/ML AMPULE IV PRN ×3 (08:01→21:34)
[2018-03-27] MEDS: LISINOPRIL 10 MG TABLET PO SCH (10:16)
[2018-03-27] MEDS: PRENATAL VITAMIN W DHA CAPSULE PO SCH (10:16)
[2018-03-27] MEDS: ASPIRIN 81 MG TABLET, ENT COATED PO SCH (10:16)
[2018-03-27] MEDS: SENNOSIDES/DOCUSATE 8.6-50 MG 1 EACH TABLET PO SCH ×2 (10:17→17:42)
[2018-03-27] MEDS: OXYCODONE HCL IR 5 MG TABLET PO PRN (11:09)
[2018-03-27] MEDS: OXYCODONE HCL SR 10 MG TABLET PO PRN (16:54)
[2018-03-27] MEDS: IBUPROFEN 800 MG in NORMAL SALINE 250 ML IV SCH (17:42)
[2018-03-27] MEDS: OXCARBAZEPINE 150 MG TABLET PO SCH (21:33)
[2018-03-27] MEDS: SERTRALINE HCL 50 MG TABLET PO SCH (21:33)
[2018-03-27] MEDS: ARIPIPRAZOLE 5 MG TABLET PO SCH (21:33)
[2018-03-28] MEDS: IBUPROFEN 800 MG in NORMAL SALINE 250 ML IV SCH ×2 (01:47→10:02)
[2018-03-28] MEDS: GABAPENTIN 400 MG CAPSULE PO SCH (05:05)
[2018-03-28] MEDS: LANSOPRAZOLE 30 MG TAB.RAP.DR PO SCH (05:05)
[2018-03-28] MEDS: OXYCODONE HCL SR 10 MG TABLET PO PRN (05:10)
[2018-03-28 06:15] LABS: HEMATOCRIT 28.5 % (36.0-47.0); HEMOGLOBIN 9.6 g/dL (12.0-15.5); MEAN CORPUSCULAR HEMOGLOBIN 26.9 pg (27.0-33.4); MEAN CORPUSCULAR HGB CONC 33.8 g/dL (32.0-36.0); MEAN CORPUSCULAR VOLUME 80 fl (80-97); PLATELET COUNT 212 10^3/uL (150-450); RED BLOOD COUNT 3.58 10^6/uL (3.72-5.28); WHITE BLOOD COUNT 12.6 10^3/uL (4.0-10.5)
--- NOTE | 2018-03-28 07:02 | PDOC DISCHARGE SUMMARY ---
General - Admit/Disc Date/PCP Admission Date/Primary Care Provider: 03/25/18 05:30 CHAPIS HSIEH MD Discharge Date: 03/28/18 - Discharge Diagnosis (1) Arthritis of left knee Is this a current diagnosis for this admission?: Yes (2) Acute blood loss as cause of postoperative anemia Is this a current diagnosis for this admission?: Yes - Additional Information Resuscitation Status: Full Code Discharge Diet: As Tolerated, Regular Discharge Activity: Balance Activity w/Rest, No Driving, No tub bath Home Medications: Aripiprazole [Abilify] 20 mg PO QHS 03/25/18 Aspirin [Adult Low Dose Aspirin EC] 81 mg PO DAILY 03/25/18 Beclomethasone Dipropionate [Qvar Redihaler] 2 puff IH BID 03/25/18 Cyclobenzaprine HCl [Flexeril 5 mg Tablet] 5 mg PO TIDP PRN 03/25/18 Eszopiclone [Lunesta] 3 mg PO QHS 03/25/18 Gabapentin [Neurontin 400 mg Capsule] 400 mg PO Q8 03/25/18 Lisinopril [Zestril] 20 mg PO DAILY 03/25/18 Meloxicam [Mobic] 7.5 mg PO DAILY 03/25/18 Metformin HCl [Glucophage 500 mg Tablet] 500 mg PO BIDBS 03/25/18 Metoprolol Succinate [Toprol Xl 25 mg Tab.sr] 25 mg PO DAILY 03/25/18 Multivitamin [Daily Multiple Vitamin] 1 tab PO DAILY 03/25/18 Omeprazole 20 mg PO QAM 03/25/18 Oxcarbazepine [Trileptal] 900 mg PO QHS 03/25/18 Sertraline HCl [Zoloft] 200 mg PO DAILY 03/25/18 Tramadol HCl [Ultram 50 mg Tablet] 50 mg PO Q12HP PRN 03/25/18 Aspirin [Ecotrin 81 mg EC Tablet] 81 mg PO DAILY tabec 03/28/18 Oxycodone HCl [Oxy-Ir 5 mg Tablet] 5 mg PO Q4HP PRN tablet 03/28/18 Oxycodone HCl [Oxycontin Sr 10 mg Tablet] 20 mg PO Q12HP PRN tab.sr.12h History of Present Illness History of Present Illness: MORENO SMITH is a 62 year old female with progressive left knee pain and functional disability secondary osteoarthritis. Patient is admitted for elective left knee arthroplasty. Hospital Course Hospital Course: Patient is admitted through the operating room she undergoes undergoes uncomplicated left knee arthroplasty. She is returned to floor in satisfactory condition. She seen by physical therapy for weightbearing as tolerated ambulation. Initially physical therapy is slow to progress because of uncontrolled pain and because of an acute postoperative anemia. The patient received 2 units of packed red blood cells and hematocrit increases to 28.5%. Pain medication is adjusted. The patient subsequent makes excellent progress with physical therapy on postop day 2 and is ready for discharge on postop day 3. Dressing is changed on postop day 3. Wound is well approximated. Sonal in place. There is no erythema or drainage. There is some ecchymosis. Physical Exam Vital Signs: Temp Pulse Resp BP Pulse Ox 37.0 C 92 15 108/67 95 03/27/18 23:29 03/27/18 23:29 03/27/18 23:29 03/27/18 23:29 03/27/18 23:29 Intake & Output 03/26/18 03/27/18 03/28/18 06:59 06:59 06:59 Intake Total 4338 1724 1258 Output Total 1999 Balance 2338 1724 1258 Weight 85.9 kg 86.4 kg 86.2 kg Physical Exam: Short heavyset female lying in hospital bed. Patient in minimal distress. General appearance: PRESENT: no acute distress, obese Head exam: PRESENT: normocephalic Respiratory exam: PRESENT: unlabored Cardiovascular exam: PRESENT: RRR Pulses: PRESENT: +1 pedal pulses bilateral Vascular exam: PRESENT: normal capillary refill GI/Abdominal exam: PRESENT: soft Rectal exam: PRESENT: deferred Extremities exam: PRESENT: other - Left knee dressing is changed on the day of discharge. Wound is well approximated without drainage or erythema. There is some induration and ecchymosis. Minimal pedal edema. Distal neurovascular examination is intact. Neurological exam: PRESENT: alert, awake, oriented to person, oriented to place , oriented to time, oriented to situation. ABSENT: motor sensory deficit Psychiatric exam: PRESENT: appropriate affect, normal mood. ABSENT: homicidal ideation, suicidal ideation Skin exam: PRESENT: dry, intact, warm. ABSENT: cyanosis, rash Results Laboratory Results: 03/28/18 05:28 03/26/18 06:06 03/28/18 05:28 WBC 12.6 H RBC 3.58 L Hgb 9.6 L Hct 28.5 L MCV 80 MCH 26.9 L MCHC 33.8 RDW 16.0 H Plt Count 212 Impressions: Knee X-Ray 03/25/18 08:30 IMPRESSION: 1 Status post left knee arthroplasty since the prior examination dated 08/16/2016. Post operative changes are noted. Status: Imported from PACS Qualifiers - * PATIENT BEING DISCHARGED WITH ANY OF THE FOLLOWING DIAGNOSIS: No VTE patient discharged on overlapping Therapy?: Yes Plan Discharge Plan: Patient to be discharged home with home health services. Follow-up with Dr. Frances Esqueda [place] for surgery in 2 weeks for staple removal.
[2018-03-28] MEDS: METFORMIN HCL 500 MG TABLET PO SCH (07:54)
[2018-03-28] MEDS: HYDROMORPHONE HCL INJ/PF 2 MG/ML AMPULE IV PRN (07:55)
[2018-03-28] MEDS ORDERED: IBUPROFEN 800 MG TABLET ONE (09:57)
[2018-03-28] MEDS: SENNOSIDES/DOCUSATE 8.6-50 MG 1 EACH TABLET PO SCH (09:58)
[2018-03-28] MEDS: ASPIRIN 81 MG TABLET, ENT COATED PO SCH (09:59)
[2018-03-28] MEDS: LISINOPRIL 10 MG TABLET PO SCH (09:59)
[2018-03-28] MEDS: PRENATAL VITAMIN W DHA CAPSULE PO SCH (10:00)
[2018-03-28 12:11] VITALS: BP 107/53
== END 2018-03-28 14:41 | disposition home health service (06) | DRG 470 ==
LOC: INOR 05:30 → 4S 09:35
PROVIDERS: ADMIT Orthopaedic Surgery; ATTEND Orthopaedic Surgery
PROC: 30233N1 Transfusion of Nonautologous Red Blood Cells into Peripheral Vein, Percutaneous Approach (ICD-10-PCS; 2018-03-25)
PROC: 0SRD0J9 Replacement of Left Knee Joint with Synthetic Substitute, Cemented, Open Approach (ICD-10-PCS; principal; 2018-03-25 07:30)
DX: M17.12 Unilateral primary osteoarthritis, left knee (principal); D62 Acute posthemorrhagic anemia; I10 Essential (primary) hypertension; K21.9 Gastro-esophageal reflux disease without esophagitis; K44.9 Diaphragmatic hernia without obstruction or gangrene; M19.90 Unspecified osteoarthritis, unspecified site; F31.9 Bipolar disorder, unspecified; E11.9 Type 2 diabetes mellitus without complications; Z79.84 Long term (current) use of oral hypoglycemic drugs; Z79.82 Long term (current) use of aspirin; Z79.899 Other long term (current) drug therapy
CPT/HCPCS: 01402; 36415; 36430; 80048; 82962; 85027; 86850; 86900; 86901; 86920; 88305; 88311; 94799; C9290; G8978-GP; G8979-GP; G8987-GO; G8988-GO; J0131; J0690; J1100; J1170; J1741; J2250; J2270; J2370; J2405; J2704; J3010; J3370; J3490; J7050; J7060; J7120; P9016

== ENCOUNTER → 2018-10-22 | Outpatient (CLI) | payer MEDICARE, MEDICAID ==
--- NOTE | 2018-10-22 16:06 | WOMENS IMAGING REPORT ---
EXAM DESCRIPTION: BILAT SCREENING MAMMO W/CAD COMPLETED DATE/TIME: 10/22/2018 2:19 pm REASON FOR STUDY: BILATERAL SCREENING MAMMO /Z12.31 Z12.31 ENCNTR SCREEN MAMMOGRAM FOR MALIGNANT NE OPLASM OF PJ COMPARISON: 2008 TECHNIQUE: Standard craniocaudal and mediolateral oblique views of each breast recorded using A123 Systemsa l acquisition. LIMITATIONS: None. FINDINGS: No masses, calcifications or architectural distortion. No areas of suspicion. Read with the assistance of CAD. .[facility] - R2 Cenova Version 1.3 .[facility] Imaging - R2 Cenova Version 1.3 .[facility] Imaging - R2 Cenova Version 2.4 .[facility] [place] - R2 Cenova Version 2.4 .[facility] - R2 Polygraph Operator Version 9.2 IMPRESSION: NORMAL MAMMOGRAM. BIRADS 1. BREAST DENSITY: b. There are scattered areas of fibroglandular density. BIRAD: 1 NEGATIVE RECOMMENDATION: ROUTINE SCREENING Please continue yearly bilateral screening tomosynthesis/mammography October 2019 COMMENT: The patient has been notified of the results by letter per SA requirements. Additional no tification policies are in place for contacting patient with suspicious or incomplete findings. Quality ID #[id number]: The [employer] recommends an annual screening mammogram for women aged 40 years or over. This facility utilizes a reminder system to ensure that all patients receive reminder letters, and/or direct phone calls for appointments. This includes reminders for routine scr eening mammograms, diagnostic mammograms, or other Breast Imaging Interventions when appropriate. Th is patient will be placed in the appropriate reminder system. The [employer] (A[employer]) has developed recommendations for screening MRI of the breast s in certain patient populations, to be used in conjunction with mammography. Breast MRI surveillanc e may be appropriate for women with more than 20% lifetime risk of developing breast cancer as deter mined by genetic testing, significant family history of the disease, or history of mantle radiation f or Hodgkins Disease. ACR Practice Guidelines 2008. TECHNICAL DOCUMENTATION: FINDING NUMBER: (1) ASSESSMENT: (1) JOB ID: [id number] [employer]- All Rights Reserved Reading location - IP/workstation name: [email or web address]
== END ==
LOC: RAD 13:30
PROVIDERS: ATTEND Family Medicine
DX: Z12.31 Encounter for screening mammogram for malignant neoplasm of breast (principal)
CPT/HCPCS: 77067

== ENCOUNTER 2019-02-03 09:29 | Day surgery (SDC) | payer MEDICARE, MEDICAID ==
[~2019-02-03 09:29] MED LIST changes: -BUPIVACAINE INJ/PF LIPOSOME/PF 266 MG/20 ML SDV IJ PRN; -CEFAZOLIN INJ 1 GM VIAL IV PRN; -IBUPROFEN 800 MG/NS 250 ML IV PRN; -LANSOPRAZOLE 15 MG TAB.RAP.DR PO PRN; -NORMAL SALINE 1000 ML 1,000 ML IV PRN; -OXYCODONE HCL SR 10 MG TABLET PO PRN; +PROPOFOL INJ 200 MG/20 ML VIAL IV ONE; -VANCOMYCIN HCL 1,000 MG in DEXTROSE 5%-WATER 250 ML IV PRN
[2019-02-03 10:42] VITALS: BP 150/76
--- NOTE | 2019-02-03 13:31 | Operative Report ---
Operative Report DATE OF SURGERY: 02/03/19 Operative Report: The risks, benefits and alternatives of the procedure including the risk of bleeding, perforation requiring surgery have been explained to the patient in detail and informed consent has been obtained. Patient is placed in a left, lateral decubital position. Timeout was called. Propofol medication is administered. Rectal examination is done which did not reveal any masses, tears or fissures. An Olympus videoscope was introduced into the patient's rectum. The scope was then carefully advanced all the way to the cecum. Cecum was identified by the usual anatomical landmarks including the ileocecal valve as well as the appendiceal office. Photodocumentation was obtained. Scope was then sequentially pulled back via the various segments of the colon including the ascending colon, hepatic flexure, transverse colon, splenic flexure, descending colon and finally into the rectosigmoid portions of the colon. Retroflexion maneuver was performed. PREOPERATIVE DIAGNOSIS: Change in bowel habits POSTOPERATIVE DIAGNOSIS: Cecal polyp that was removed via biopsy forceps and retrieved. Random biopsies noted on the right side of the colon to rule out lymphocytic, microscopic colitis. Diverticulosis without any evidence of diverticulitis. Internal hemorrhoids OPERATION: Colonoscopy with biopsy. SURGEON: SHAZIA ALICEA ANESTHESIA: LMAC TISSUE REMOVED OR ALTERED: As noted above. COMPLICATIONS: None. ESTIMATED BLOOD LOSS: None. INTRAOPERATIVE FINDINGS: As noted above. PROCEDURE: Patient tolerated the procedure well. No immediate postprocedure complications are noted. Patient discharged in good condition. Discharge date 02/03/2019. Discharge diet: Regular. Discharge activity: Regular. 2-3-week follow-up to discuss findings. Patient is instructed call the office or proceed to the emergency room should there be any further proximal questions. 3-5-year surveillance colonoscopy Wait on the pathology for exact determination of interval of next surveillance
== END 2019-02-03 10:45 | disposition home or self-care (01) ==
LOC: END 09:29
PROVIDERS: ATTEND Internal Medicine Gastroenterology
DX: K57.30 Diverticulosis of large intestine without perforation or abscess without bleeding (principal); K64.8 Other hemorrhoids; D12.0 Benign neoplasm of cecum; M06.9 Rheumatoid arthritis, unspecified; I10 Essential (primary) hypertension; E11.65 Type 2 diabetes mellitus with hyperglycemia; R06.02 Shortness of breath; J44.9 Chronic obstructive pulmonary disease, unspecified; E66.9 Obesity, unspecified; Z68.39 Body mass index [BMI] 39.0-39.9, adult; Z79.899 Other long term (current) drug therapy; Z79.51 Long term (current) use of inhaled steroids; Z79.84 Long term (current) use of oral hypoglycemic drugs
CPT/HCPCS: 45380; 82962; 88305 ×2; J2704; 811

== ENCOUNTER → 2020-10-06 | Outpatient (CLI) | payer MEDICARE, MEDICAID ==
--- NOTE | 2020-10-06 14:12 | RADIOLOGY REPORT (SQ) ---
EXAM DESCRIPTION: MRI HEAD COMBO IMAGES COMPLETED DATE/TIME: 10/06/2020 12:31 pm REASON FOR STUDY: (G44.52)NEW DAILY PERSISTENT HEADACHE ([facility]) G44.52 NEW DAILY PERSISTENT HEADACHE ([facility]). Headache, memory loss, off balance, increasing headache with no ease. Diabetes, hypertensi on. COMPARISON: None. TECHNIQUE: Multiplanar imaging includes noncontrasted T1, T2, FLAIR, diffusion with ADC map and post gadolinium contrast T1 sequences. Images stored on PACS. CONTRAST TYPE AND DOSE: 15 mL ProHance RENAL FUNCTION: Not indicated. ACR Type II contrast agent associated with few, if any, unconfounded cases of NSF LIMITATIONS: None. FINDINGS: ANATOMY: No anomalies. Normal vascular flow voids. Pituitary fossa normal. CSF SPACES: Normal in size and contour. No hemorrhage. CEREBRUM: Sulci and gyri normal in size and contour. Very mild patchy punctate hyperintense white ma tter signal on FLAIR imaging. No evidence of hemorrhage, mass, or extraaxial fluid collection. No abn ormal enhancement post contrast. POSTERIOR FOSSA: No signal alteration. No hemorrhage. No edema, masses, or mass effect. Internal jesusita tory canals, cerebellopontine angles, mastoids normal. No enhancing lesions. No abnormal enhancement post contrast. DIFFUSION IMAGING: Negative for acute or subacute infarction. ORBITS: No masses. Globes normal. PARANASAL SINUSES: No fluid levels. Mucosa normal. OTHER: No other significant finding. IMPRESSION: No intracranial mass, ischemia, or evidence of intracranial hemorrhage. EVIDENCE OF ACUTE STROKE: NO. TECHNICAL DOCUMENTATION: JOB ID: [id number] [employer]- All Rights Reserved Reading location - IP/workstation name: [email or web address]
== END ==
LOC: RAD 12:28
PROVIDERS: ATTEND Nurse Practitioner Family
DX: G44.52 New daily persistent headache (NDPH) (principal)
CPT/HCPCS: 82565; 70553; A9576